=== PATIENT | female | born 1990 | race African-American/Black ===

== ENCOUNTER 2017-10-26 23:31 | Outpatient (CLI) | payer OTHER ==
--- NOTE | 2017-10-27 03:30 | Ultrasound Report ---
* REVISED: THIS REPORT WAS ORIGINALLY SIGNED ON 10/27/2017 @ 0344. DATE OF SERVICE WAS REVISED ON 11/02/2017. Procedure Date: 10/27/2017 Accession Number: [id number] / [id number] Procedure: US - OB Transvaginal CPT Code: FULL RESULT: EXAM: FIRST TRIMESTER OBSTETRIC ULTRASOUND (Less than 11 weeks) EXAM DATE: 10/26/2017 11:47 PM. CLINICAL HISTORY: In vitro fertilization on 09/28/2017. Follow-up exam. COMPARISONS: None. TECHNIQUE: Transabdominal and transvaginal ultrasound examination with static image documentation. FINDINGS: Gestational Sac: No definite gestational sac demonstrated at this time. MATERNAL STRUCTURES: Uterus: Uterus is normal in position and configuration. Uterus measures 9.4 x 4.4 x 6.0 cm. Endometrium: There is nonspecific heterogeneous thickening of the endometrial stripe complex. A definite gestational sac is not identified on this exam. Right Ovary/Adnexa: Physiologic appearance of the right ovary is noted, measuring 2.0 x 2.5 x 1.3 cm. Left Ovary/Adnexa: Physiologic appearance of the left ovary is noted, measuring 1.5 x 1.2 x 1.1 cm. Free Fluid: None. Other: None. IMPRESSION: 1. No definite intrauterine gestational sac demonstrated. No suspicious adnexal lesion demonstrated. Correlation with serum beta hCG values would be helpful. Follow-up imaging could be acquired as clinically warranted. 2. Physiologic appearance of the ovaries. RADIA The call report notification system was initiated by Dr. Mila Walton at 03:24 hrs on 10/27/17. The above findings were discussed with Dr Nam Burgos, Dr by Dr. Mila Walton at 03:29 hrs on 10/27/17. MTDD
--- NOTE | 2017-10-27 03:30 | Ultrasound Report ---
REVISED: THIS REPORT WAS ORIGINALLY SIGNED ON 10/27/2017 @ 0344. EXAM CODE REVISED ON 11/02/2017. Procedure Date: 10/27/2017 Accession Number: [id number] / [id number] Procedure: US - OB 14+ Weeks CPT Code: FULL RESULT: EXAM: FIRST TRIMESTER OBSTETRIC ULTRASOUND (Less than 11 weeks) EXAM DATE: 10/26/2017 11:47 PM. CLINICAL HISTORY: In vitro fertilization on 09/28/2017. Follow-up exam. COMPARISONS: None. TECHNIQUE: Transabdominal and transvaginal ultrasound examination with static image documentation. FINDINGS: Gestational Sac: No definite gestational sac demonstrated at this time. MATERNAL STRUCTURES: Uterus: Uterus is normal in position and configuration. Uterus measures 9.4 x 4.4 x 6.0 cm. Endometrium: There is nonspecific heterogeneous thickening of the endometrial stripe complex. A definite gestational sac is not identified on this exam. Right Ovary/Adnexa: Physiologic appearance of the right ovary is noted, measuring 2.0 x 2.5 x 1.3 cm. Left Ovary/Adnexa: Physiologic appearance of the left ovary is noted, measuring 1.5 x 1.2 x 1.1 cm. Free Fluid: None. Other: None. IMPRESSION: 1. No definite intrauterine gestational sac demonstrated. No suspicious adnexal lesion demonstrated. Correlation with serum beta hCG values would be helpful. Follow-up imaging could be acquired as clinically warranted. 2. Physiologic appearance of the ovaries. RADIA The call report notification system was initiated by Dr. Mila Walton at 03:24 hrs on 10/27/17. The above findings were discussed with Dr Nam Burgos, Dr by Dr. Mila Walton at 03:29 hrs on 10/27/17. MTDD
== END 2017-10-26 23:32 | disposition home or self-care (01) ==
LOC: DI 23:31
PROVIDERS: ATTEND Obstetrics & Gynecology
DX: Z36.9 Encounter for antenatal screening, unspecified (principal)
CPT/HCPCS: 76801; 76805; 76817

== ENCOUNTER 2017-10-27 13:05 | Outpatient (CLI) | payer OTHER | END 2017-10-27 13:06 | disposition home or self-care (01) | LOC: LAB 13:05 | PROVIDERS: ATTEND Obstetrics & Gynecology | DX: Z36.9 Encounter for antenatal screening, unspecified (principal) | CPT/HCPCS: 36415; 84702 ==

== ENCOUNTER 2018-01-01 23:20 | Emergency (ER) | payer OTHER ==
--- NOTE | 2018-01-02 00:06 | ED Physician Documentation ---
PD HPI BACK PAIN - Stated complaint Stated Complaint: BACK PAIN - Chief complaint Chief Complaint: Back Pain - History obtained from History obtained from: Patient - History of Present Illness Timing - onset: Yesterday Timing - details: Abrupt onset, Still present Location: Lower, Left Quality: Pain Worsened by: Movement, Lifting Contributing factors: Lifting Similar symptoms before: Has not had sx before Recently seen: Not recently seen - Additional information Additional information: Patient is a 27 year old female who is presenting to the emergency department for left lower back pain. 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 patient states that her biggest concern was for a miscarriage since she had a miscarriage in the past. patient wanted a beta hcg level to make sure it was still going up. Review of Systems Ten Systems: 10 systems reviewed and negative GI: denies: Abdominal Pain, Nausea, Vomiting, Diarrhea : denies: Dysuria, Frequency, Hesitancy, Discharge, Vaginal bleeding Musculoskeletal: reports: Back pain PD PAST MEDICAL HISTORY - Past Medical History Past Medical History: No - Past Surgical History Past Surgical History: No - Present Medications Home Medications: Ambulatory Orders Medication Instructions Recorded Confirmed Estradiol [Estrogel] 50 gm TD 01/01/18 Progesterone,Micronized 1 gm MC 01/01/18 [Progesterone] - Allergies Allergies/Adverse Reactions: Allergies Allergy/AdvReac Type Severity Reaction Status Date / Time No Known Drug Allergies Allergy Verified 01/01/18 23:31 - Social History Does the pt smoke?: No Smoking Status: Never smoker Does the pt drink ETOH?: No Does the pt have substance abuse?: No - Immunizations Immunizations are current?: Yes - POLST Patient has POLST: No PD ED PE NORMAL - Vitals Vital signs reviewed: Yes - General General: Alert and oriented X 3, No acute distress - HEENT HEENT: Atraumatic, PERRL - Neck Neck: Supple, no meningeal sign - Cardiac Cardiac: RRR - Respiratory Respiratory: No respiratory distress - Abdomen Abdomen: Soft - Derm Derm: Normal color, No rash - Extremities Extremities: No deformity, Normal ROM s pain - Neuro Neuro: Alert and oriented X 3 Eye Opening: Spontaneous PD ED PE EXPANDED - General General: Alert, Anxious - Back Back: Normal ROM, Soft tissue tenderness. No: Vertebral tenderness Back visual: 1 - tenderness Results - Vitals Vitals: Vital Signs - 24 hr 01/01/18 23:27 Temperature 36.0 C L Heart Rate 78 Respiratory 18 Rate Blood Pressure 124/77 O2 Saturation 100 Oxygen O2 Source Room air PD MEDICAL DECISION MAKING - ED course Complexity details: reviewed old records, reviewed results, re-evaluated patient, considered differential, d/w patient ED course: Grecia was seen and examined at bedside. patient was well appearing and in no d istress. patient was anxious and tearful about having a miscarriage. patient reported that she did not need tylenol since she could take it at home but wanted to confirm that her beta hcg was still rising. labs were drawn. patient was treated with an ice pack. patient's beta hcg was in did elevating. Patient required no further work up at this time and was stable for discharge with outpatient follow up. - Sepsis Event Vital Signs: Vital Signs - 24 hr 01/01/18 23:27 Temperature 36.0 C L Heart Rate 78 Respiratory 18 Rate Blood Pressure 124/77 O2 Saturation 100 Oxygen O2 Source Room air Departure - Departure Disposition: 01 Home, Self Care Clinical Impression: Back pain Condition: Good Instructions: ED Low Back Pain Injury Follow-Up: primary,care provider [Other] - Within 3 Days Comments: Your symptoms today are likely secondary to a low back strain. You should ice the area and take tylenol as needed for pain. you should follow up with medical records for your beta level tomorrow. You may return to the emergency depar tment at any time for new, worsening or uncontrollable symptoms. Forms: Activity restrictions
[2018-01-02 01:20] VITALS: BP 126/66
== END 2018-01-02 01:05 | disposition home or self-care (01) ==
LOC: ED 23:20
DX: M54.5 Low back pain (principal)
CPT/HCPCS: 36415; 84702; 99282; 99283

== ENCOUNTER 2018-01-05 15:05 | Emergency (ER) | payer OTHER ==
[2018-01-05 15:17] VITALS: BP 109/71
--- NOTE | 2018-01-05 16:27 | ED Physician Documentation ---
History of Present Illness - Stated complaint Stated Complaint: RETURN TO WORK - Chief complaint Chief Complaint: General - History obtained from History obtained from: Patient - History of Present Illness Timing: Other (She recently injured her back. She is completely recovered and needs a return to work note. She has no specific complaints at this point.) Review of Systems Constitutional: reports: Reviewed and negative Cardiac: reports: Reviewed and negative Respiratory: reports: Reviewed and negative PD PAST MEDICAL HISTORY - Past Surgical History Past Surgical History: No - Present Medications Home Medications: Ambulatory Orders Medication Instructions Recorded Confirmed Estradiol [Estrogel] 50 gm TD 01/01/18 Progesterone,Micronized 1 gm MC 01/01/18 [Progesterone] - Allergies Allergies/Adverse Reactions: Allergies Allergy/AdvReac Type Severity Reaction Status Date / Time No Known Drug Allergies Allergy Verified 01/05/18 15:17 - Social History Does the pt smoke?: No Smoking Status: Never smoker Does the pt drink ETOH?: No Does the pt have substance abuse?: No - Immunizations Immunizations are current?: Yes - POLST Patient has POLST: No PD ED PE NORMAL - Vitals Vital signs reviewed: Yes - General General: Alert and oriented X 3, No acute distress - Back Back: No CVA TTP, No spinal TTP - Neuro Neuro: Alert and oriented X 3, Normal speech Results - Vitals Vitals: Vital Signs - 24 hr 01/05/18 15:15 Temperature 36 C L Heart Rate 82 Respiratory 20 Rate Blood Pressure 109/71 O2 Saturation 100 Oxygen O2 Source Room air PD MEDICAL DECISION MAKING - Sepsis Event Vital Signs: Vital Signs - 24 hr 01/05/18 15:15 Temperature 36 C L Heart Rate 82 Respiratory 20 Rate Blood Pressure 109/71 O2 Saturation 100 Oxygen O2 Source Room air Departure - Departure Disposition: 01 Home, Self Care Clinical Impression: Back pain Qualifiers: Back pain location: low back pain Condition: Good Record reviewed to determine appropriate education?: Yes
== END 2018-01-05 16:30 | disposition home or self-care (01) ==
LOC: ED 15:05
DX: M54.5 Low back pain (principal)
CPT/HCPCS: 99281; 99282

== ENCOUNTER 2018-01-12 20:58 | Outpatient (CLI) | payer OTHER ==
--- NOTE | 2018-01-13 14:07 | Ultrasound Report ---
Reason: ENCTR FOR TEST, RESULT POSITIVE Procedure Date: 01/12/2018 Accession Number: [id number] / [id number] Procedure: US - OB First Trimester CPT Code: FULL RESULT: EXAM: FIRST TRIMESTER OBSTETRIC ULTRASOUND (Less than 11 weeks) EXAM DATE: 01/12/2018 09:02 PM. CLINICAL HISTORY: Encounter FOR TEST, RESULT POSITIVE. LMP: 11/22/2017. COMPARISONS: None. TECHNIQUE: Transabdominal and transvaginal ultrasound examination with static image documentation. CLINICAL DATES: EGA 6 weeks 6 days with ERIN 09/02/2018 based on IVF 12/10/2017. ASSESSMENT: Gestational Sac: Single intrauterine. Mean gestational sac diameter: 20 mm = 6.5 weeks. Embryo: CRL (crown-rump length) 9.2 mm = 7 weeks. Cardiac activity: 139 beats per minute. Yolk sac: 3 mm. Amniotic fluid: Not accurately assessed at this gestational age. Early placenta: Not visible at this gestational age. Other: No perigestational fluid collection demonstrated. MATERNAL STRUCTURES: Uterus: Anteverted/ . Unremarkable. Cervix: Closed. Right Ovary/Adnexa: The ovary measures 2.9 x 1.3 x 3.5 cm, volume 7.1 cc. Unremarkable. Left Ovary/Adnexa: The ovary measures 4.4 x 1.5 x 1.7 cm, volume 5.8 cc. Unremarkable. Free Fluid: None. Other: None. IMPRESSION: 1. Single viable intrauterine at EGA 7 weeks 0 days with ERIN 08/31/2018 based on crown-rump length, which is concordant with dating from IVF. RADIA
== END 2018-01-12 20:59 | disposition home or self-care (01) ==
LOC: DI 20:58
PROVIDERS: ATTEND Obstetrics & Gynecology
DX: Z32.01 Encounter for pregnancy test, result positive (principal); Z3A.01 Less than 8 weeks gestation of pregnancy
CPT/HCPCS: 76801

== ENCOUNTER 2018-01-27 16:38 | Outpatient (CLI) | payer OTHER ==
[2018-01-27 17:19] LABS: BILIRUBIN,URINE NEGATIVE (NEGATIVE); GLUCOSE, URINE (UA) NEGATIVE (NEGATIVE); KETONES,URINE (UA) NEGATIVE (NEGATIVE); LEUKOCYTE ESTERASE, URINE NEGATIVE (NEGATIVE); NITRITE,URINE NEGATIVE (NEGATIVE); OCCULT BLOOD,URINE TRACE-INTA (NEGATIVE); PROTEIN,URINE NEGATIVE (NEGATIVE); UROBILINOGEN,URINE 0.2 (NORMAL) E.U./dL (NORMAL)
[2018-01-27 17:27] LABS: CLARITY,URINE CLEAR (CLEAR)
[2018-01-27 17:28] LABS: BACTERIA,URINE None Seen /HPF (None Seen); RBC,URINE None Seen /HPF (0-5); SQUAMOUS EPITHELIAL CELL,UR RARE Squamous (<= Few)
[2018-01-27 17:36] LABS: BASOPHILS % (AUTO) 0.2 %; EOSINOPHILS # (AUTO) 0.4 10^3/uL (0.0-0.7); EOSINOPHILS % (AUTO) 4.5 %; HGB - HEMOGLOBIN 12.2 g/dL (12.0-16.0); LYMPHOCYTES # (AUTO) 1.3 10^3/uL (1.5-3.5); LYMPHOCYTES % (AUTO) 16.4 %; MEAN CORPUSCULAR HEMOGLOBIN 30.6 pg (27.0-31.0); MEAN CORPUSCULAR HGB CONC 33.9 g/dL (32.0-36.0); MEAN CORPUSCULAR VOLUME 90.1 fL (81.0-99.0); MEAN PLATELET VOLUME 9.4 fL (7.9-10.8); MONOCYTES # (AUTO) 0.6 10^3/uL (0.0-1.0); MONOCYTES % (AUTO) 7.4 %; NEUTROPHILS # (AUTO) 5.6 10^3/uL (1.5-6.6); NEUTROPHILS % (AUTO) 71.5 %; PLT - PLATELET COUNT 237 10^3/uL (130-450); RED BLOOD COUNT 3.98 10^6/uL (4.20-5.40); RED CELL DISTRIBUTION WIDTH 13.5 % (12.0-15.0); WHITE BLOOD COUNT 7.9 x10^3/uL (4.8-10.8)
[2018-01-28 11:26] LABS: HEPATITIS B SURFACE ANTIGEN NON-REACTIVE (NON-REACTIVE)
[2018-01-28 11:27] LABS: HEPATITIS C ANTIBODY NON-REACTIVE (NON-REACTIVE)
[2018-01-28 12:43] LABS: HIV AG/AB 4TH GEN NON-REACTIVE (NON-REACTIVE)
== END 2018-01-27 16:39 | disposition home or self-care (01) ==
LOC: LAB 16:38
PROVIDERS: ATTEND Obstetrics & Gynecology
DX: Z36.9 Encounter for antenatal screening, unspecified (principal)
CPT/HCPCS: 36415; 81001; 81599; 85025; 86592; 86762; 86803; 86850; 86900; 86901; 87340; 87389

== ENCOUNTER 2018-01-28 08:00 | Outpatient (CLI) | payer OTHER ==
[2018-01-28 14:39] LABS: MUDS CUTOFF CONCENTRATIONS CUTOFF CONC BELOW:
[2018-01-28 15:22] LABS: AMPHETAMINE SCREEN,URINE NEGATIVE (NEGATIVE); BENZODIAZEPINES SCREEN, URINE NEGATIVE (NEGATIVE); COCAINE SCREEN URINE NEGATIVE (NEGATIVE); METHADONE SCREEN, URINE NEGATIVE (NEGATIVE); METHAMPHETAMINES SCREEN, URINE NEGATIVE (NEGATIVE); OPIATE SCREEN, URINE NEGATIVE (NEGATIVE); OXYCODONE SCREEN, URINE NEGATIVE (NEGATIVE); PROPOXYPHENE SCREEN, URINE NEGATIVE (NEGATIVE); TRICYCLIC ANTIDEPRESSANT,URINE NEGATIVE (NEGATIVE)
== END 2018-01-28 08:01 | disposition home or self-care (01) ==
LOC: LAB.R 08:00
PROVIDERS: ATTEND Obstetrics & Gynecology
DX: Z36.9 Encounter for antenatal screening, unspecified (principal); Z11.3 Encounter for screening for infections with a predominantly sexual mode of transmission
CPT/HCPCS: 80306; 87491; 87591

== ENCOUNTER 2018-04-08 09:24 | Outpatient (CLI) | payer OTHER ==
--- NOTE | 2018-04-11 14:00 | Ultrasound Report ---
Reason: ENCOUNTER FOR SCREENING,UNSPECIFIED,PREG Procedure Date: 04/08/2018 Accession Number: [id number] / [id number] Procedure: US - OB Detailed Eval CPT Code: FULL RESULT: EXAM: COMPLETE OBSTETRICAL ULTRASOUND EXAM DATE: 04/08/2018 11:45 AM. CLINICAL HISTORY: anatomic survey. COMPARISON: 01/12/2018. TECHNIQUE: Real-time sonographic evaluation of the fetus performed by the etl manager. Multiple billing representative static images were saved for review. DATING: EGA 19 weeks 2 days with ERIN 08/31/2018 based on prior ultrasound. EGA 19 weeks 4 days with ERIN 08/29/2018 based on the current ultrasound. GENERAL EVALUATION Mcintosh . Cardiac activity: 143 bpm. movement: Present Presentation: Variable Placenta: Anterior position. No evidence for previa. Umbilical cord: 3 vessel cord. Central placental cord origin. Amniotic fluid: Subjectively normal. MVP 3.3 cm. BIOMETRY Bi-Parietal Diameter (BPD): 4.8 cm, 20 weeks 2 days Head Circumference (HC): 17.2 cm, 19 weeks 5 days Abdominal Circumference (AC): 14.1 cm, 19 weeks 3 days Femur Length (FL): 3 cm, 19 weeks 2 days Estimated Weight: 296 g. ANATOMY The intracranial structures, spine, 4 chamber heart, stomach, abdominal wall and cord insertion, diaphragm, bladder, and extremities were imaged and demonstrate no abnormality. The profile, nasal bones, outflow tracts, and kidneys are not well seen. Suggest follow-up imaging in 2-3 weeks of these structures. MATERNAL STRUCTURES Uterus: Unremarkable. Cervix: Long and closed. Transabdominal length 4.1 cm. Right ovary/adnexa: Unremarkable. Left ovary/adnexa: Unremarkable. Free fluid: None. IMPRESSION: 1. Mcintosh intrauterine with gestational age 19 weeks 4 days based on current ultrasound, concordant with the expected age by first ultrasound.. 2. The facial profile, nasal bones, outflow tracts, and kidneys are suboptimally seen today. Suggest follow-up imaging in 2-3 weeks of these structures. 3. Otherwise unremarkable anatomic survey. RADIA
== END 2018-04-08 09:25 | disposition home or self-care (01) ==
LOC: DI 09:24
PROVIDERS: ATTEND Obstetrics & Gynecology
DX: Z36.9 Encounter for antenatal screening, unspecified (principal); Z33.1 Pregnant state, incidental
CPT/HCPCS: 76811

== ENCOUNTER 2018-06-02 09:54 | Outpatient (CLI) | payer OTHER ==
--- NOTE | 2018-06-02 13:46 | Ultrasound Report ---
Reason: Procedure Date: 06/02/2018 Accession Number: [id number] / [id number] Procedure: US - OB F/U or Repeat CPT Code: FULL RESULT: EXAM: FOLLOW-UP OBSTETRICAL ULTRASOUND EXAM DATE: 06/02/2018 11:48 AM. CLINICAL HISTORY: Completion of anatomy survey. COMPARISON: OB DETAILED EVAL 04/08/2018 9:43 AM. TECHNIQUE: Real-time sonographic evaluation of the fetus performed by the biomedical electronics technician. Additional transvaginal imaging to more accurately evaluate cervical length/placental position/etc. Multiple outside sales representative insurance static images were saved for review. DATING: Established EGA 26 weeks 6 days with ERIN 09/02/2018 based on chute operator. EGA 27 weeks 1 day with ERIN 08/31/2018 based on first ultrasound. EGA 27 weeks 5 days with ERIN 08/27/2018 based on the current ultrasound. GENERAL EVALUATION Mcintosh . Cardiac activity: 138 bpm. movement: Visualized. Presentation: Cephalic. Placenta: Anterior position. Amniotic fluid: Normal. BEULAH 15.9 cm. MVP 5.8 cm. BIOMETRY Bi-Parietal Diameter (BPD): 7.2 cm, 28 weeks 5 days Head Circumference (HC): 25.6 cm, 27 weeks 5 days Abdominal Circumference (AC): 22.7 cm, 27 weeks 0 days Femur Length (FL): 5.2 cm, 27 weeks 3 days Estimated Weight: 1075 g, 60th percentile for 26 weeks 6 days. ANATOMY The facial profile, nasal bones, cardiac outflow tracts and kidneys are adequately visualized on today's examination and normal. MATERNAL STRUCTURES The cervix was evaluated transvaginally and demonstrates mild internal funneling with a closed length of 2.6 cm maintained. IMPRESSION: 1. Mcintosh live intrauterine with gestational age 26 weeks 6 days based on chute operator. 2. Estimated weight is within expected limits for assigned dating. 3. Normal completion of the anatomy survey. 4. Closed cervix with transvaginal length of 2.6 cm. RADIA The call report notification system was initiated by Dr. Austin Whittaker at 01:33 PM on 06/02/2018. ADDENDUM: 06/02/18 14:34 The above call report findings were discussed with Nam Burgos by Dr. Austin Whittaker at 02:34 PM on 06/02/2018.
== END 2018-06-02 09:55 | disposition home or self-care (01) ==
LOC: DI 09:54
PROVIDERS: ATTEND Obstetrics & Gynecology
DX: Z36.89 Encounter for other specified antenatal screening (principal)
CPT/HCPCS: 76816

== ENCOUNTER 2018-06-06 20:56 | Outpatient (CLI) | payer OTHER ==
[2018-06-06 21:43] LABS: CREATININE,URINE 145.2 mg/dL; PROTEIN/CREATININE RATIO,URINE 0.1 (<=0.2)
[2018-06-06 22:28] LABS: BASOPHILS % (AUTO) 0.2 %; EOSINOPHILS % (AUTO) 0.4 %; HGB - HEMOGLOBIN 9.6 g/dL (12.0-16.0); LYMPHOCYTES # (AUTO) 1.8 10^3/uL (1.5-3.5); LYMPHOCYTES % (AUTO) 20.2 %; MEAN CORPUSCULAR HEMOGLOBIN 29.8 pg (27.0-31.0); MEAN CORPUSCULAR HGB CONC 34.6 g/dL (32.0-36.0); MEAN CORPUSCULAR VOLUME 86.2 fL (81.0-99.0); MONOCYTES # (AUTO) 0.8 10^3/uL (0.0-1.0); MONOCYTES % (AUTO) 8.6 %; NEUTROPHILS # (AUTO) 6.4 10^3/uL (1.5-6.6); NEUTROPHILS % (AUTO) 70.6 %; PLT - PLATELET COUNT 198 10^3/uL (130-450); RED BLOOD COUNT 3.22 10^6/uL (4.20-5.40); RED CELL DISTRIBUTION WIDTH 13.4 % (12.0-15.0)
[2018-06-06 22:40] LABS: ALBUMIN/GLOBULIN RATIO 0.8 (1.0-2.2); BILIRUBIN,TOTAL 0.3 mg/dL (0.2-1.0); CALCIUM 8.5 mg/dL (8.5-10.3); CREATININE 0.6 mg/dL (0.4-1.0); TOTAL PROTEIN 6.9 g/dL (6.7-8.2)
== END 2018-06-06 20:57 | disposition home or self-care (01) ==
LOC: LAB 20:56
PROVIDERS: ATTEND Obstetrics & Gynecology
DX: O09.92 Supervision of high risk pregnancy, unspecified, second trimester (principal)
CPT/HCPCS: 80053; 82570; 82950; 84156; 85025; 86787; 86850

== ENCOUNTER 2018-06-06 21:51 | Outpatient (CLI) | payer OTHER ==
--- NOTE | 2018-06-06 22:57 | Ultrasound Report ---
Reason: , FOR CERVICAL LENGTH ONLY. Procedure Date: 06/06/2018 Accession Number: [id number] / [id number] Procedure: US - OB Transvaginal CPT Code: FULL RESULT: EXAM: LIMITED OBSTETRICAL ULTRASOUND. EXAM DATE: 06/06/2018 09:51 PM. CLINICAL HISTORY: , for cervical length only. COMPARISON: OB F/U OR REPEAT 06/02/2018 9:57 AM OB DETAILED EVAL 04/08/2018 9:43 AM. TECHNIQUE: Real-time sonographic evaluation of the fetus performed by the green marketer. Multiple provider relations representative static images were saved for review. Additional transvaginal imaging to more accurately evaluate cervical length/placental position/etc. FINDINGS: Established due date: 08/27/2018. Estimated gestational age: 28 weeks 2 days. Presentation: Cephalic. Placental position: Anterior. No evidence of abruption or previa. cardiac activity: 138 bpm. Cervix measures 2.6 cm in maximal length, best seen on the transvaginal images. Subjectively normal amniotic fluid, within the visualized portions. IMPRESSION: 1. Single live intrauterine gestation is noted. 2. Cervix measures 2.6 cm, closed. RADIA
== END 2018-06-06 23:59 ==
LOC: DI 21:51
PROVIDERS: ATTEND Obstetrics & Gynecology
DX: Z36.86 Encounter for antenatal screening for cervical length (principal); O09.92 Supervision of high risk pregnancy, unspecified, second trimester
CPT/HCPCS: 76817; 80053; 82570; 82950; 84156; 85025; 85027; 86787; 86850

== ENCOUNTER 2018-06-13 14:17 | Outpatient (CLI) | payer OTHER ==
[2018-06-13 15:18] LABS: % IRON SATURATION 31 % (20-50); IRON 178 ug/dL (28-170); TOTAL IRON BINDING CAPACITY 567 ug/dL (250-450); TRANSFERRIN 405 mg/dL (192-382)
== END 2018-06-13 14:18 | disposition home or self-care (01) ==
LOC: LAB 14:17
PROVIDERS: ATTEND Obstetrics & Gynecology
DX: D64.9 Anemia, unspecified (principal)
CPT/HCPCS: 36415; 82607; 82746; 83540; 84466

== ENCOUNTER 2018-06-16 20:56 | Outpatient (CLI) | payer OTHER ==
--- NOTE | 2018-06-16 23:08 | Ultrasound Report ---
Reason: OTHER ABNORMALITIES OF CERVIX, ANTEPARTUM, 3RD TRI Procedure Date: 06/16/2018 Accession Number: [id number] / [id number] Procedure: US - OB Transvaginal CPT Code: FULL RESULT: EXAM: LIMITED OBSTETRICAL ULTRASOUND EXAM DATE: 06/16/2018 10:44 PM. CLINICAL HISTORY: Abnormal appearance of the cervix on prior ultrasound, follow-up. COMPARISON: OB TRANSVAGINAL 06/06/2018 9:50 PM. TECHNIQUE: Real-time sonographic evaluation of the fetus performed by the asset card clerk. Multiple employee representative static images were saved for review. Additional transvaginal imaging to more accurately evaluate cervical length/placental position/etc. FINDINGS: Established due date: 09/02/2018. Estimated gestational age: 28 weeks 6 days. Single live intrauterine gestation in cephalic position. Cardiac activity at 150 bpm. Cervix is long and closed measuring 3.2 cm. No definite evidence of previa in the visualized portions. IMPRESSION: 1. Single live intrauterine gestation. 2. Cervix is long and closed measuring 3.2 cm. RADIA The call report notification system was initiated by Dr. Mila Walton at 11:07 PM on 06/16/2018.
== END 2018-06-16 20:57 | disposition home or self-care (01) ==
LOC: DI 20:56
PROVIDERS: ATTEND Obstetrics & Gynecology
DX: O34.43 Maternal care for other abnormalities of cervix, third trimester (principal); Z3A.28 28 weeks gestation of pregnancy
CPT/HCPCS: 76817

== ENCOUNTER 2018-06-20 16:16 | Outpatient (CLI) | payer OTHER ==
[2018-06-20] MEDS ORDERED: BETAMETHASONE 30 MG/5 ML VIAL IM ONE (16:22)
[2018-06-20] MEDS ORDERED: BETAMETHASONE 30 MG/5 ML VIAL ONE (16:32)
[2018-06-20 16:43] VITALS: BP 113/76
== END 2018-06-20 16:44 | disposition home or self-care (01) ==
LOC: WFO 16:16 → FBP 16:19 → WFO 16:44
PROVIDERS: ATTEND Obstetrics & Gynecology
DX: O47.03 False labor before 37 completed weeks of gestation, third trimester (principal); Z3A.29 29 weeks gestation of pregnancy
CPT/HCPCS: 96372

== ENCOUNTER 2018-06-21 15:24 | Outpatient (CLI) | payer OTHER, BC ==
[2018-06-21] MEDS ORDERED: BETAMETHASONE 30 MG/5 ML VIAL IM ONE (16:00)
== END 2018-06-21 15:50 | disposition home or self-care (01) ==
LOC: WFO 15:24 → FBP 15:29 → WFO 15:50
PROVIDERS: ATTEND Obstetrics & Gynecology
DX: O47.03 False labor before 37 completed weeks of gestation, third trimester (principal); Z3A.29 29 weeks gestation of pregnancy
CPT/HCPCS: 96372

== ENCOUNTER 2018-06-30 11:35 | Outpatient (CLI) | payer OTHER, BC ==
[2018-06-30 12:01] LABS: HGB - HEMOGLOBIN 10.5 g/dL (12.0-16.0); MEAN CORPUSCULAR HEMOGLOBIN 28.7 pg (27.0-31.0); MEAN CORPUSCULAR HGB CONC 33.3 g/dL (32.0-36.0); MEAN CORPUSCULAR VOLUME 86.1 fL (81.0-99.0); MEAN PLATELET VOLUME 10.4 fL (7.9-10.8); RED BLOOD COUNT 3.67 10^6/uL (4.20-5.40); RED CELL DISTRIBUTION WIDTH 15.5 % (12.0-15.0); WHITE BLOOD COUNT 11.6 x10^3/uL (4.8-10.8)
== END 2018-06-30 11:36 | disposition home or self-care (01) ==
LOC: LAB 11:35
PROVIDERS: ATTEND Obstetrics & Gynecology
DX: D64.9 Anemia, unspecified (principal)
CPT/HCPCS: 36415; 81599; 83021; 85027

== ENCOUNTER 2018-07-08 16:17 | Outpatient (CLI) | payer BC, OTHER ==
[2018-07-08 16:55] LABS: HGB - HEMOGLOBIN 10.6 g/dL (12.0-16.0); MEAN CORPUSCULAR HGB CONC 33.5 g/dL (32.0-36.0); MEAN CORPUSCULAR VOLUME 86.8 fL (81.0-99.0); MEAN PLATELET VOLUME 10.3 fL (7.9-10.8); RED BLOOD COUNT 3.67 10^6/uL (4.20-5.40); RED CELL DISTRIBUTION WIDTH 15.8 % (12.0-15.0); WHITE BLOOD COUNT 9.3 x10^3/uL (4.8-10.8)
== END 2018-07-08 16:18 | disposition home or self-care (01) ==
LOC: LAB 16:17
PROVIDERS: ATTEND Obstetrics & Gynecology
DX: Z36.8A Encounter for antenatal screening for other genetic defects (principal); D64.9 Anemia, unspecified
CPT/HCPCS: 36415; 81220; 81243; 81329; 81599; 85027

== ENCOUNTER 2018-08-04 11:16 | Outpatient (CLI) | payer BC, OTHER | END 2018-08-04 23:59 | disposition home or self-care (01) | LOC: LAB.R 11:16 | PROVIDERS: ATTEND Obstetrics & Gynecology | DX: O09.93 Supervision of high risk pregnancy, unspecified, third trimester (principal) | CPT/HCPCS: 87491; 87591; 87797 ==

== ENCOUNTER 2018-08-11 11:16 | Outpatient (CLI) | payer BC, OTHER ==
--- NOTE | 2018-08-12 08:28 | Ultrasound Report ---
Reason: SUPERVISION HIGH RISK 3RD TRIMESTER Procedure Date: 08/11/2018 Accession Number: [id number] / [id number] Procedure: US - OB F/U or Repeat CPT Code: FULL RESULT: EXAM: FOLLOW-UP OBSTETRICAL ULTRASOUND EXAM DATE: 08/11/2018 12:07 PM. CLINICAL HISTORY: Supervision high risk 3rd trimester. COMPARISON: OB F/U OR REPEAT 06/02/2018 9:57 AM. OB DETAILED EVAL 04/08/2018 9:43 AM. OB TRANSVAGINAL 06/16/2018 10:20 PM. OB TRANSVAGINAL 06/06/2018 9:50 PM. TECHNIQUE: Real-time sonographic evaluation of the fetus performed by the airline captain. Multiple marketing development representative static images were saved for review. DATING: Established EGA 37 weeks 1 day with ERIN 08/31/2018 based on physician stated/ first ultrasound. EGA 37 weeks 5 days with ERIN 08/27/2018 based on ultrasound biometry 06/02/2018. EGA 35 weeks 5 days with ERIN 09/10/2018 based on the current ultrasound. GENERAL EVALUATION Mcintosh . Cardiac activity: 130 bpm. movement: Visualized. Presentation: Cephalic. Placenta: Anterior position. Amniotic fluid: Normal. BEULAH 10.8 cm. MVP 4.4 cm. BIOMETRY Bi-Parietal Diameter (BPD): 8.9 cm, 35 weeks 5 days Head Circumference (HC): 31.3 cm, 35 weeks 0 days Abdominal Circumference (AC): 31.6 cm, 35 weeks 4 days Femur Length (FL): 7.1 cm, 36 weeks 2 days Estimated Weight: 2746 g, 22nd percentile for 37 weeks 1 day. ANATOMY Assessed previously. MATERNAL STRUCTURES Not assessed today. IMPRESSION: 1. Mcintosh live intrauterine with gestational age 37 weeks 1 day based on physician stated. 2. Estimated weight is within expected limits for assigned dating at 22nd percentile. Estimated gestational age on current ultrasound is 10 days delayed relative to established dates. 3. Two weeks delayed interval growth compared to biometry by ultrasound 06/02/2018. RADIA
== END 2018-08-11 11:17 | disposition home or self-care (01) ==
LOC: DI 11:16
PROVIDERS: ATTEND Obstetrics & Gynecology
DX: O09.93 Supervision of high risk pregnancy, unspecified, third trimester (principal); Z3A.37 37 weeks gestation of pregnancy
CPT/HCPCS: 76816

== ENCOUNTER 2018-09-06 05:37 | Inpatient (IN) | payer BC, OTHER ==
[2018-09-06] MEDS ORDERED: LACTATED RINGERS 1,000 ML IV SCH (08:00)
[2018-09-06 08:13] LABS: BASOPHILS % (AUTO) 0.3 %; EOSINOPHILS % (AUTO) 0.2 %; HGB - HEMOGLOBIN 10.7 g/dL (12.0-16.0); LYMPHOCYTES # (AUTO) 1.9 10^3/uL (1.5-3.5); MEAN CORPUSCULAR HEMOGLOBIN 27.9 pg (27.0-31.0); MEAN CORPUSCULAR HGB CONC 33.6 g/dL (32.0-36.0); MEAN CORPUSCULAR VOLUME 83.2 fL (81.0-99.0); MEAN PLATELET VOLUME 10.8 fL (7.9-10.8); MONOCYTES # (AUTO) 0.7 10^3/uL (0.0-1.0); NEUTROPHILS # (AUTO) 6.1 10^3/uL (1.5-6.6); NEUTROPHILS % (AUTO) 69.5 %; PLT - PLATELET COUNT 200 10^3/uL (130-450); RED BLOOD COUNT 3.82 10^6/uL (4.20-5.40); RED CELL DISTRIBUTION WIDTH 17.5 % (12.0-15.0); WHITE BLOOD COUNT 8.7 x10^3/uL (4.8-10.8)
[2018-09-06] MEDS: SODIUM CHLORIDE FLUSH 0.9% 10 ML SYRINGE IVP SCH ×2 (09:11→19:11)
[2018-09-06] MEDS ORDERED: OXYTOCIN/SODIUM CHLORIDE 500 ML IV PRN (09:57)
[2018-09-06] MEDS ORDERED: fentaNYL 100 MCG/2 ML VIAL IVP PRN (09:57)
[2018-09-06] MEDS ORDERED: SODIUM CHLORIDE FLUSH 0.9% 10 ML SYRINGE IVP PRN (09:57)
[2018-09-06] MEDS ORDERED: METOCLOPRAMIDE 10 MG/2 ML VIAL IVP PRN ×2 (09:57→23:21)
[2018-09-06] MEDS: miSOPROStol 100 MCG TABLET PO SCH ×3 (10:17→19:48)
[2018-09-06] MEDS ORDERED: SODIUM CHLORIDE FLUSH 0.9% 10 ML SYRINGE IVP SCH (17:00)
[2018-09-06] MEDS: ONDANSETRON 4 MG/2 ML VIAL IVP PRN (19:10)
[2018-09-06] MEDS ORDERED: fent/BUPIV 2 MCG/0.125% 250 ML EP ONE (22:21)
[2018-09-06] MEDS ORDERED: fentaNYL 100 MCG/2 ML VIAL ONE (22:34)
[2018-09-06] MEDS ORDERED: ROPIVACAINE 0.2% PF 20 ML AMPULE ONE (22:34)
--- NOTE | 2018-09-06 22:42 | HISTORY & PHYSICAL EXAMINATION ---
Admit History - Visit Reason Visit Reason: Other (28yo with ERIN of 09/02/18 by IVF dating here for induction of labor) - : 2 Parity: 1 Care: positive: [facility] Risk/History: positive: None (pending post dates) Complications This : positive: None Smoking Status: Never smoker - Mother's Labs Mother's Blood Type: positive: AB Mother's RH: positive: Positive GBS: positive: Group B Step Negative Rubella Status: positive: Immune - Other Maternal History Other Maternal History: Normocytic anemia with sickle cell trait IVF Meds/Allgy - Home Medications Home Medications: Ambulatory Orders Medication Instructions Recorded Confirmed Estradiol [Estrogel] 50 gm TD 01/01/18 Progesterone,Micronized 1 gm MC 01/01/18 [Progesterone] - Allergies Allergies/Adverse Reactions: Allergies Allergy/AdvReac Type Severity Reaction Status Date / Time No Known Drug Allergies Allergy Verified 01/05/18 15:17 Review of Systems - All Other Systems All Other Systems: reports: Reviewed and negative Physical - Abdominal Exam Contraction Intensity: positive: Irritability Uterine Resting Tone: positive: Soft - Monitoring Strip Review: positive: Category I - Presentation Presentation: positive: Vertex (confirmed by bedside us) - Vaginal Exam Membranes: positive: Membranes intact Dilation (in cm): 2-3 Effacement (%): 60 Station: positive: -2 Cervical Position: positive: Midposition - Speculum Exam Speculum Exam Performed: negative: No Plan for Labor - Plan For Labor I expect patient to be DC'd or transferred within 96 hours.: Yes Plan for Labor: 28 yo at 40w4d by IVF dating here for pending postdates IOL SVE 2-3/60/-2 Not favorable Reviewed process of IOL and consents were obtained Will start cervical ripening with misoprostol po Discussed possibility of Ramsey balloon and proceeding to pitocin FWB: Vertex by US, appropriate growth, GBS neg, Cat I tracing -Cont EFM PAIN MGT: Reviewed options available. -Desires epidural at 5-6 cm Anticipate Inpatient stay (LATE ENTRY. Admitted at 8:30 am)
--- NOTE | 2018-09-06 22:55 | PROVIDER PROGRESS NOTE ---
Labor Progress Note - Uterine Monitoring Contraction Frequency (min/apart): Q2-3 min Contraction Intensity: negative: Moderate to strong Uterine Resting Tone: positive: Soft - Monitoring Monitor Mode: negative: External ultrasound Heart Rate Baseline: 140 Heart Rate Variability: positive: Moderate (6-25 bmp) Accelerations: positive: Present, 15x15 (Cat I tracing) Decelerations: positive: None Strip Review: positive: Category I - Vaginal Exam Dilation (in cm): 6 Effacement (%): 80 Station: -1 Cervical Position: Midposition - Labor Progress Note Labor Progress Note/Additional Text: Patient had received 2 doses of misoprostol and had entered into appropriate labor pattern Four hours after second dose SVE was 5/60/-2 We opted for expectant management at that time. tracing was Cat I At about 9:24 pm, pt requested AROM tracing was Cat I and contractions were Q2-3 min. Renetta was uncomfortable and had to breathe through contractions Nitrous oxide for pain after fentanyl SVE 6/80/-1 AROM for clear fluid GBS neg Considering epidural Cont with expt management Anticipate
[2018-09-06] MEDS ORDERED: SODIUM CHLORIDE FLUSH 0.9% 10 ML SYRINGE ONE (22:59)
[2018-09-06] MEDS ORDERED: NALBUPHINE 10 MG/ML AMP IVP PRN (23:21)
[2018-09-06] MEDS ORDERED: fent/BUPIV 2 MCG/0.125% 250 ML EP PRN (23:21)
[2018-09-06] MEDS ORDERED: diphenhydrAMINE INJ 50 MG/ML VIAL IVP PRN (23:21)
[2018-09-06] MEDS ORDERED: ePHEDrine 50 MG/ML VIAL IVP PRN (23:21)
[2018-09-06] MEDS ORDERED: LACTATED RINGERS 500 ML IV ONE (23:21)
[2018-09-06] MEDS ORDERED: NALOXONE 0.4 MG/ML VIAL IVP PRN (23:21)
[2018-09-06] MEDS ORDERED: ONDANSETRON 4 MG/2 ML VIAL IVP PRN (23:21)
--- NOTE | 2018-09-06 23:21 | ANESTHESIA ---
Pre-Anesthesia VS, & Labs - Diagnosis term labor, IUP - Procedure Vaginal Delivery Height 5 ft 4 in Weight (kg) 74.843 kg Body Mass Index 22.3 - NPO Last Fluid Intake: t/o day and noc - Is Patient ?: Yes - Lab Results Current Lab Results: Laboratory Tests 09/06/18 07:24: WBC 8.7, RBC 3.82 L, Hgb 10.7 L, Hct 31.8 L, MCV 83.2, MCH 27.9, MCHC 33.6, RDW 17.5 H, Plt Count 200, MPV 10.8, Neut # (Auto) 6.1, Lymph # (Auto) 1.9, [place] # (Auto) 0.7, Eos # (Auto) 0.0, Baso # (Auto) 0.0, Absolute Nucleated RBC 0.00, Nucleated RBC % 0.1 Lab results reviewed: Yes Fish Bones: 09/06/18 07:24 Home Medications and Allergies Active Medications Fentanyl (Fentanyl) 50 mcg IVP Q1H PRN PRN Reason: PAIN Last Admin: 09/06/18 18:49 Dose: 50 mcg Lactated Ringer's (Lr) 1,000 mls @ 150 mls/hr IV .Q6H40M [facility] Oxytocin/Sodium Chloride (Pitocin/Sodium Chloride) 500 mls @ 999 mls/hr IV PRN PRN; Protocol PRN Reason: POST- HEMORR PREVENTION Metoclopramide HCl (Reglan Inj) 10 mg IVP Q6H PRN PRN Reason: Nausea / Vomiting Misoprostol (Cytotec) 50 mcg PO Q4H [facility] Last Admin: 09/06/18 19:48 Dose: Not Given Ondansetron HCl (Zofran Inj) 4 mg IVP Q4H PRN PRN Reason: Nausea / Vomiting Last Admin: 09/06/18 19:10 Dose: 4 mg Sodium Chloride (Normal Saline Flush 0.9%) 10 ml IVP 0100,0900,1700 [facility] Last Admin: 09/06/18 19:11 Dose: 10 ml Sodium Chloride (Normal Saline Flush 0.9%) 10 ml IVP PRN PRN PRN Reason: NEEDED PER PROVIDER ORDERS Estradiol [Estrogel] 50 gm TD 01/01/18 Progesterone,Micronized [Progesterone] 1 gm MC 01/01/18 Allergies/Adverse Reactions: Allergies Allergy/AdvReac Type Severity Reaction Status Date / Time No Known Drug Allergies Allergy Verified 01/05/18 15:17 Anes History & Medical History - Anesthetic History Anesthesia Complications: reports: No previous complications Family history of Anesthesia Complications: Denies Family history of Malignant Hyperthermia: Denies - Medical History Smoking Status: Never smoker - Surgical History Eyes Ears Nose Throat (EENT): Tonsil/Adenoidectomy - Obstetrical History : 2 Parity: 1 Events: positive: None (pending post dates) Complications: positive: None Exam General: Alert, Oriented x3, Cooperative Dental: WNL Mouth Openin Fingerbreadth Neck Mobility: Normal Mallampati classification: I Thyromental Distance: 4-6 cm Respiratory: No respiratory distress Cardiovascular: Regular rate Neurological: Normal speech Mental/Cognitive Status: Alert/Oriented X3, Normal for patient Cognitive Status: Within normal limits Plan Anesthesia Type: Epidural Consent for Procedure(s) Verified and Reviewed: Yes Code Status: Attempt Resuscitation ASA classification: 2-Mild systemic disease Is this case an emergency?: No
[2018-09-06] MEDS ORDERED: SODIUM CHLORIDE 0.9% 10 ML VIAL IV ONE (23:33)
[2018-09-06] MEDS ORDERED: ePHEDrine 50 MG/ML VIAL IVP ONE (23:33)
[2018-09-07] MEDS: LACTATED RINGERS 1,000 ML IV SCH ×3 (00:24→20:53)
--- NOTE | 2018-09-07 01:59 | PROVIDER PROGRESS NOTE ---
Labor Progress Note - Uterine Monitoring Contraction Intensity: positive: Moderate Uterine Resting Tone: positive: Soft - Monitoring Monitor Mode: positive: External ultrasound Heart Rate Baseline: 135 Heart Rate Variability: positive: Moderate (6-25 bmp) Accelerations: positive: Absent Decelerations: positive: Early - Vaginal Exam Dilation (in cm): 9.5 Effacement (%): 100 Station: 0 Cervical Position: Midposition - Labor Progress Note Labor Progress Note/Additional Text: At about 1:00, tracing showed a deceleration. SVE was AL Pushing initiated with retraction of CL Decelerations noted wiht pushes Baby in OP position Head elevated and manual rotation attempted Head not well engaged Further exam shows return of AL despite additional retraction. Posteriorly, additional cervical tissue remains Opting to cease pushing and cont to labor/labor down EFM 135 mod variability, no accels and intermittent decels c/w early decel TOCO: Q 3ming Consider IUPC to assess intrauterine pressure. Cont to monitor
[2018-09-07] MEDS ORDERED: TERBUTALINE 1 MG/ML VIAL SUBQ ONE ×2 (03:00→05:33)
[2018-09-07] MEDS ORDERED: ceFAZolin 2 GM in SODIUM CHLORIDE 0.9% MINIBAG 100 ML IV SCH (03:29)
--- NOTE | 2018-09-07 03:34 | PROVIDER PROGRESS NOTE ---
Labor Progress Note - Uterine Monitoring Contraction Intensity: positive: Moderate Uterine Resting Tone: positive: Soft - Monitoring Monitor Mode: positive: External ultrasound Heart Rate Variability: positive: Moderate (6-25 bmp) Accelerations: positive: Absent Decelerations: positive: Recurrent (>50% x20 min) (EFM 120 mod ihsan wiht deep recurrent decels with pushing) - Vaginal Exam Dilation (in cm): complete Effacement (%): 100 Station: 0 - Labor Progress Note Labor Progress Note/Additional Text: Labored down one hour Recurrent decelsfelt with pelvic pressure reported by patient Minimal change in descent Deep recurrent decels with pushing suggesting of nuchal cords Given poor descent nd increasng intensity of decels, recommend delivery via c- section Terbutlaine given to slow/reduce intensity of contractions cefazolin 2 g IV ordered OCTOR Proceed with delivery
[2018-09-07] MEDS ORDERED: CITRIC ACID/SODIUM CITRATE 15 ML UDC PO ONE (03:39)
[2018-09-07] MEDS ORDERED: LACTATED RINGERS 1,000 ML IV ONE ×3 (05:19→09:35)
[2018-09-07] MEDS ORDERED: LORazepam 2 MG/ML VIAL ONE (06:03)
[2018-09-07] MEDS ORDERED: LABETALOL 5 MG/1 ML 20 ML MDV ONE (06:16)
[2018-09-07] MEDS ORDERED: MAGNESIUM SULFATE 2 GRAM 6 GM/150 ML BAG IV ONE (06:37)
[2018-09-07] MEDS: MAGNESIUM SULFATE 2 GRAM 2 GM/50 ML BAG IV SCH ×2 (06:41→07:01)
[2018-09-07 07:04] LABS: BASOPHILS % (AUTO) 0.1 %; HGB - HEMOGLOBIN 8.7 g/dL (12.0-16.0); LYMPHOCYTES # (AUTO) 0.6 10^3/uL (1.5-3.5); LYMPHOCYTES % (AUTO) 2.9 %; MEAN CORPUSCULAR HEMOGLOBIN 27.8 pg (27.0-31.0); MEAN CORPUSCULAR HGB CONC 33.2 g/dL (32.0-36.0); MEAN CORPUSCULAR VOLUME 83.6 fL (81.0-99.0); MEAN PLATELET VOLUME 10.6 fL (7.9-10.8); MONOCYTES # (AUTO) 1.6 10^3/uL (0.0-1.0); MONOCYTES % (AUTO) 7.7 %; NEUTROPHILS # (AUTO) 18.1 10^3/uL (1.5-6.6); NEUTROPHILS % (AUTO) 89.3 %; PLT - PLATELET COUNT 177 10^3/uL (130-450); RED BLOOD COUNT 3.12 10^6/uL (4.20-5.40); RED CELL DISTRIBUTION WIDTH 17.5 % (12.0-15.0); WHITE BLOOD COUNT 20.3 x10^3/uL (4.8-10.8)
[2018-09-07 07:09] LABS: URIC ACID 4.6 mg/dL (2.6-7.2)
[2018-09-07] MEDS: MAGNESIUM SULFATE IN WATER 20 GM/500 ML IV.SOLN IV SCH ×3 (07:10→20:40)
[2018-09-07] MEDS ORDERED: MAGNESIUM SULFATE IN WATER 20 GM/500 ML IV.SOLN IV ONE (07:20)
[2018-09-07 07:36] LABS: DIFFERENTIAL COMMENT MANUAL=AUTO DIFF
[2018-09-07] MEDS ORDERED: SODIUM CHLORIDE FLUSH 0.9% 10 ML SYRINGE IVP PRN (07:38)
[2018-09-07] MEDS ORDERED: LACTATED RINGERS 1,000 ML IV SCH (08:00)
[2018-09-07] MEDS ORDERED: ceFAZolin 1 GM VIAL IV ONE (09:00)
[2018-09-07] MEDS ORDERED: ROPIVACAINE 0.5% PF 20 ML AMPULE EP ONE (09:00)
[2018-09-07] MEDS ORDERED: PHENYLEPHRINE 50 MG/5 ML VIAL IV ONE (09:00)
[2018-09-07] MEDS ORDERED: ePHEDrine 50 MG/ML VIAL IVP ONE (09:00)
[2018-09-07] MEDS ORDERED: OXYTOCIN 10 UNIT/ML VIAL IV ONE (09:00)
[2018-09-07] MEDS ORDERED: ONDANSETRON 4 MG/2 ML VIAL IVP ONE (09:00)
[2018-09-07] MEDS ORDERED: MORPHINE PF 5 MG/10 ML AMP EP ONE (09:00)
[2018-09-07] MEDS ORDERED: LIDOCAINE-MPF 2% 5 ML VIAL IM ONE (09:00)
[2018-09-07] MEDS ORDERED: KETOROLAC 30 MG/ML VIAL IVP SCH (09:00)
[2018-09-07] MEDS ORDERED: KETOROLAC 30 MG/ML VIAL IVP ONE (09:00)
--- NOTE | 2018-09-07 13:10 | OPERATIVE REPORT ---
Operative Report - General Admit Date: 09/06/18 Procedure Date: 09/07/18 Planned Procedure: Primary low trasnverse Pre-Op Diagnosis: intolerance of labor, failure to descend Procedure Performed: Primary low transverse Post Op Diagnosis: Same and delivery of term gestation - Procedure Note Primary Surgeon: Annie Rascon MD Secondary Surgeon: Stephen Goldman MD Anesthesia Technique: Epidural Pathology: Placenta for routine discard Estimated Blood Loss (mL): 150 Indications: intolerance of labor and failure to descend. heart rate would decelerate to the 60s with pushing with poor progress with descent. Minimal descent with one hour of laboring down. heart tracing unable to tolerate continued pushing, remote from delivery Findings: Male fetus weighing 8lb 0.8 oz, Apgars 8/9 Complications: Surgery was uncomplicated. Patient showed dystonic/chorea like arm spasms during the surgerythat worsened during the post op period. - Other Other Information/Narrative: see dictation
[2018-09-07] MEDS: KETOROLAC 30 MG/ML VIAL IVP SCH (14:06)
--- NOTE | 2018-09-07 19:40 | PROVIDER PROGRESS NOTE ---
Subjective - General Admit Date: 09/06/18 Procedure Date: 09/07/18 Post Op Days: 0 Procedure Performed: PLTC/S - Review of Systems Wound/Incisions: positive: Drainage (Pt has blood on the dressing. removed and replaced) General: positive: No symptoms (Pain 2/10 moving well upout of bed) Pulmonary: positive: No symptoms Cardiovascular: positive: No symptoms Gastrointestinal: positive: No symptoms All Other Systems: positive: Reviewed and negative Objective - Patient Data Vital Signs: Vital Signs x48h Temp Pulse Resp BP Pulse Ox 09/07/18 17:00 36.8 C 102 H 16 116/62 96 09/07/18 12:34 37.1 C 76 18 104/67 98 Weight: Weight 09/05/18 09/06/18 09/07/18 23:59 23:59 23:59 Weight (kg) 74.843 kg Intake & Output: Intake and Output Totals x24h 09/05/18 09/06/18 09/07/18 23:59 23:59 23:59 Intake Total 500 Output Total 2120 Balance -1620 - Lab Results Lab Results: 09/07/18 06:50 Other Lab Results: Lab Results x24hrs 09/07/18 09/07/18 09/07/18 Range/Units 06:50 06:50 06:50 WBC (4.8-10.8) x10^3/uL RBC (4.20-5.40) 10^6/uL Hgb (12.0-16.0) g/dL Hct (37.0-47.0) % MCV (81.0-99.0) fL MCH (27.0-31.0) pg MCHC (32.0-36.0) g/dL RDW (12.0-15.0) % Plt Count (130-450) 10^3/uL MPV (7.9-10.8) fL Neut # (Auto) (1.5-6.6) 10^3/uL Lymph # (Auto) (1.5-3.5) 10^3/uL [place] # (Auto) (0.0-1.0) 10^3/uL Eos # (Auto) (0.0-0.7) 10^3/uL Baso # (Auto) (0.0-0.1) 10^3/uL Absolute Nucleated RBC x10^3/uL Band Neuts % (Manual) Abnorm Lymph % (Manual) Nucleated RBC % /100WBC Neutrophils # (Manual) Lymphocytes # (Manual) Monocytes # (Manual) Eosinophils # (Manual) Basophils # (Manual) Differential Comment Fibrinogen 398 (220-496) mg/dL Uric Acid 4.6 (2.6-7.2) mg/dL AST 33 (10-42) IU/L Lactate Dehydrogenase 179 (91-225) IU/L 09/07/18 Range/Units 06:50 WBC 20.3 H (4.8-10.8) x10^3/uL RBC 3.12 L (4.20-5.40) 10^6/uL Hgb 8.7 L (12.0-16.0) g/dL Hct 26.1 L (37.0-47.0) % MCV 83.6 (81.0-99.0) fL MCH 27.8 (27.0-31.0) pg MCHC 33.2 (32.0-36.0) g/dL RDW 17.5 H (12.0-15.0) % Plt Count 177 (130-450) 10^3/uL MPV 10.6 (7.9-10.8) fL Neut # (Auto) 18.1 H (1.5-6.6) 10^3/uL Lymph # (Auto) 0.6 L (1.5-3.5) 10^3/uL [place] # (Auto) 1.6 H (0.0-1.0) 10^3/uL Eos # (Auto) 0.0 (0.0-0.7) 10^3/uL Baso # (Auto) 0.0 (0.0-0.1) 10^3/uL Absolute Nucleated RBC 0.03 x10^3/uL Band Neuts % (Manual) Not Reportable Abnorm Lymph % (Manual) Not Reportable Nucleated RBC % 0.1 /100WBC Neutrophils # (Manual) Not Reportable Lymphocytes # (Manual) Not Reportable Monocytes # (Manual) Not Reportable Eosinophils # (Manual) Not Reportable Basophils # (Manual) Not Reportable Differential Comment MANUAL=AUTO DIFF Fibrinogen (220-496) mg/dL Uric Acid (2.6-7.2) mg/dL AST (10-42) IU/L Lactate Dehydrogenase (91-225) IU/L - Current Medications Current Medications: Current Medications Generic Name Dose Route Start Last Admin Trade Name Freq PRN Reason Stop Dose Admin Fentanyl 50 mcg 09/06/18 09:57 09/06/18 18:49 Fentanyl IVP 50 mcg Q1H PRN Administration PAIN Lactated Ringer's 1,000 mls @ 150 mls/hr 09/06/18 10:00 09/07/18 00:24 Lr IV 150 mls/hr .Q6H40M AMANDA Administration Magnesium Sulfate 20 gm in 500 mls @ 50 mls/hr 09/07/18 08:00 09/07/18 19:05 Magnesium Sulf 20 G/500 Ml Bag IV 2 gm/hr .Q10H AMANDA 50 mls/hr Administration 2 GM/HR Ketorolac Tromethamine 30 mg 09/07/18 12:00 09/07/18 14:06 Toradol Inj (30mg) IVP 09/08/18 00:01 30 mg Q6H AMANDA Administration Misoprostol 50 mcg 09/06/18 11:00 09/06/18 19:48 Cytotec PO Not Given Q4H AMANDA Ondansetron HCl 4 mg 09/06/18 09:57 09/06/18 19:10 Zofran Inj IVP 4 mg Q4H PRN Administration Nausea / Vomiting Sodium Chloride 10 ml 09/06/18 09:00 09/06/18 19:11 Normal Saline Flush 0.9% IVP 10 ml 0100,0900,1700 AMANDA Administration - Physical Exam Wound/Incisions: positive: Drainage (removed and redressed) General Appearance: positive: No acute distress, Anxious (Pt is very distrubed about the events of this AM. felt that she was dying. was in and out. had violent shaking which resolved.) Respiratory: positive: Chest non-tender, No respiratory distress, Breath sounds nml Cardiovascular: positive: Regular rate & rhythm, No murmur, No gallop Abdomen: positive: Non-tender, Nml bowel sounds, No distention Neurologic/Psychiatric: positive: Oriented x3 Comments/Other: Pt is very anxoius about the events of this AM Impression/Plan - Problem List Problem List: POD #0 SP PLTC/S for intolerance of Labor Anxious about delivery. Disappointed about having a C/S. No signs of hypovolemia. no tachycardia, hypotension, excellent urinary out put. Plan CBC, Magnesium level Pt needs rest. at this time a Ultrasound would not be recomended. would CT in needed
[2018-09-07 19:52] LABS: BASOPHILS % (AUTO) 0.3 %; HGB - HEMOGLOBIN 7.1 g/dL (12.0-16.0); LYMPHOCYTES % (AUTO) 6.3 %; MEAN CORPUSCULAR HEMOGLOBIN 27.5 pg (27.0-31.0); MEAN CORPUSCULAR HGB CONC 33.1 g/dL (32.0-36.0); MEAN PLATELET VOLUME 9.8 fL (7.9-10.8); MONOCYTES % (AUTO) 11.2 %; NEUTROPHILS % (AUTO) 82.2 %; PLT - PLATELET COUNT 169 10^3/uL (130-450); RED BLOOD COUNT 2.57 10^6/uL (4.20-5.40); RED CELL DISTRIBUTION WIDTH 17.6 % (12.0-15.0); WHITE BLOOD COUNT 22.8 x10^3/uL (4.8-10.8)
[2018-09-07 19:54] LABS: ABNORMAL LYMPHS % (MANUAL) 0 %
[2018-09-07 20:11] LABS: BAND NEUTROPHILS % (MANUAL) 2 %; LYMPHOCYTES # (MANUAL) 1.1 10^3/uL (1.5-3.5); LYMPHOCYTES % (MANUAL) 5 %; MONOCYTES # (MANUAL) 1.4 10^3/uL (0.0-1.0); NEUTROPHILS # (MANUAL) 20.3 10^3/uL (1.5-6.6); NEUTROPHILS % (MANUAL) 87 %; RBC MORPHOLOGY (MULTIPLE) 1+ ANISOCYTOSIS (NORMAL)
[2018-09-07 20:12] LABS: DIFFERENTIAL COMMENT MANUAL DIFFERENTIAL; PLATELET ESTIMATE, MANUAL NORMAL (130-450,000) (NORMAL); PLATELET MORPHOLOGY NORMAL APPEARANCE (NORMAL)
[2018-09-07] MEDS: DOCUSATE SODIUM 100 MG CAPSULE PO SCH (20:59)
[2018-09-07] MEDS: SIMETHICONE CHEW 80 MG TABLET PO SCH (22:52)
[2018-09-08] MEDS: KETOROLAC 30 MG/ML VIAL IVP SCH ×2 (00:56→20:19)
[2018-09-08 06:01] LABS: BASOPHILS % (AUTO) 0.2 %; EOSINOPHILS % (AUTO) 0.2 %; LYMPHOCYTES # (AUTO) 2.1 10^3/uL (1.5-3.5); LYMPHOCYTES % (AUTO) 12.5 %; MEAN CORPUSCULAR HEMOGLOBIN 27.6 pg (27.0-31.0); MEAN CORPUSCULAR VOLUME 83.6 fL (81.0-99.0); MEAN PLATELET VOLUME 10.3 fL (7.9-10.8); MONOCYTES # (AUTO) 1.5 10^3/uL (0.0-1.0); MONOCYTES % (AUTO) 8.6 %; NEUTROPHILS # (AUTO) 13.4 10^3/uL (1.5-6.6); NEUTROPHILS % (AUTO) 78.5 %; PLT - PLATELET COUNT 160 10^3/uL (130-450); RED BLOOD COUNT 2.37 10^6/uL (4.20-5.40); RED CELL DISTRIBUTION WIDTH 17.7 % (12.0-15.0)
[2018-09-08 06:02] LABS: MAGNESIUM 4.5 mg/dL (1.7-2.8); URIC ACID 4.5 mg/dL (2.6-7.2)
[2018-09-08 06:06] LABS: HGB - HEMOGLOBIN 6.5 g/dL (12.0-16.0)
[2018-09-08 06:31] LABS: CREATININE,URINE 21.3 mg/dL
[2018-09-08 06:32] LABS: TOTAL PROTEIN,URINE TIMED < 6 mg/dL
[2018-09-08] MEDS: oxyCODONE 5 MG TABLET PO PRN ×4 (07:03→21:00)
[2018-09-08] MEDS: SIMETHICONE CHEW 80 MG TABLET PO SCH ×2 (07:03→20:59)
[2018-09-08] MEDS: IBUPROFEN 600 MG TABLET PO SCH ×3 (08:31→21:00)
[2018-09-08] MEDS: ACETAMINOPHEN 325 MG TABLET PO PRN ×3 (11:37→20:59)
[2018-09-08] MEDS: DOCUSATE SODIUM 100 MG CAPSULE PO SCH ×2 (11:37→20:59)
[2018-09-08] MEDS ORDERED: IBUPROFEN 600 MG TABLET PO SCH (14:00)
[2018-09-08] MEDS ORDERED: SODIUM CHLORIDE FLUSH 0.9% 10 ML SYRINGE ONE ×2 (14:51→18:01)
[2018-09-08] MEDS: SODIUM CHLORIDE FLUSH 0.9% 10 ML SYRINGE IVP PRN (14:52)
[2018-09-08] MEDS: SODIUM CHLORIDE FLUSH 0.9% 10 ML SYRINGE IVP SCH (14:52)
--- NOTE | 2018-09-08 17:25 | PROVIDER PROGRESS NOTE ---
Subjective - General Admit Date: 09/06/18 Procedure Date: 09/07/18 Post Op Days: 1 Procedure Performed: PLTC/S - Review of Systems Wound/Incisions: positive: Dressing dry and intact, Drainage (removed and re dressed) General: positive: No symptoms (Pain 2/10 moving well upout of bed) HEENT: positive: No symptoms Pulmonary: positive: No symptoms Cardiovascular: positive: No symptoms Gastrointestinal: positive: No symptoms Genitourinary: positive: No symptoms Musculoskeletal: positive: No symptoms Skin: positive: No symptoms Psychiatric: positive: No symptoms All Other Systems: positive: Reviewed and negative - Other Other Information/Narrative: Renetta is POD#1 s/p unscheduled primary . Post operative course haf been complicated by an unusual clinical presentation in which the patient had chorea-like movements, tachycardia, hypertension, and intermittent episodes of loss of consciousness in which tone was maintained. She improved after treatment with benadryl 12.5 mg IV, lorazepam 0.5 mg IV, l abetalol 20 mg IV, and magnesium 6g bolus and 2g infusion. The magnesium infusion was stopped yesterday. Blood pressures have been maintained within normal range. HCT was 19.5 this am. Renetta has sickle cell trait and is accustomed to a lower baseline HCT. She is without symptoms today. She has been up and ambulating, tolerating po, voiding, and has pain appropriately managed with oral meds. No dizziness, lightheadedness, or palpitations. Objective - Patient Data Vital Signs: Vital Signs x48h Temp Pulse Resp BP Pulse Ox 09/08/18 16:45 98.8 F 91 16 166/66 H 97 09/08/18 12:30 97 16 115/72 99 09/08/18 10:25 104/59 L Weight: Weight 09/06/18 09/07/18 09/08/18 23:59 23:59 23:59 Weight (kg) 74.843 kg Intake & Output: Intake and Output Totals x24h 09/06/18 09/07/18 09/08/18 23:59 23:59 23:59 Intake Total 550 250 Output Total 4358 0035 Balance -1555 -3680 - Lab Results Lab Results: 09/08/18 05:25 Other Lab Results: Lab Results x24hrs 0609/08/18 09/08/18 Range/Units 06:05 05:25 05:16 WBC 17.0 H (4.8-10.8) x10^3/uL RBC 2.37 L (4.20-5.40) 10^6/uL Hgb 6.5 L* (12.0-16.0) g/dL Hct 19.8 L* (37.0-47.0) % MCV 83.6 (81.0-99.0) fL MCH 27.6 (27.0-31.0) pg MCHC 33.0 (32.0-36.0) g/dL RDW 17.7 H (12.0-15.0) % Plt Count 160 (130-450) 10^3/uL MPV 10.3 (7.9-10.8) fL Neut # (Auto) 13.4 H Lymph # (Auto) 2.1 [place] # (Auto) 1.5 H Eos # (Auto) 0.0 Baso # (Auto) 0.0 Absolute Nucleated RBC 0.01 Total Counted Band Neuts % (Manual) (0 - 10) % Abnorm Lymph % (Manual) % Nucleated RBC % 0.1 Neutrophils # (Manual) (1.5-6.6) 10^3/uL Lymphocytes # (Manual) (1.5-3.5) 10^3/uL Monocytes # (Manual) (0.0-1.0) 10^3/uL Eosinophils # (Manual) (0-0.7) 10^3/uL Basophils # (Manual) (0-0.1) 10^3/uL Differential Comment Manual Slide Review WBC Morphology (NORMAL) Platelet Estimate (NORMAL) Platelet Morphology (NORMAL) RBC Morph Micro Appear (NORMAL) Uric Acid 4.5 (2.6-7.2) mg/dL Magnesium 4.5 H (1.7-2.8) mg/dL AST 29 (10-42) IU/L ALT 13 (10-60) IU/L Urine Creatinine 21.3 mg/dL Ur Total Protein Timed < 6 mg/dL Protein/Creatinin Ratio Not Reportable 09/07/18 09/07/18 Range/Units 19:47 19:47 WBC 22.8 H (4.8-10.8) x10^3/uL RBC 2.57 L (4.20-5.40) 10^6/uL Hgb 7.1 L (12.0-16.0) g/dL Hct 21.4 L (37.0-47.0) % MCV 83.0 (81.0-99.0) fL MCH 27.5 (27.0-31.0) pg MCHC 33.1 (32.0-36.0) g/dL RDW 17.6 H (12.0-15.0) % Plt Count 169 (130-450) 10^3/uL MPV 9.8 (7.9-10.8) fL Neut # (Auto) Not Reportable Lymph # (Auto) Not Reportable [place] # (Auto) Not Reportable Eos # (Auto) Not Reportable Baso # (Auto) Not Reportable Absolute Nucleated RBC Not Reportable Total Counted 100 Band Neuts % (Manual) 2 (0 - 10) % Abnorm Lymph % (Manual) 0 % Nucleated RBC % Not Reportable Neutrophils # (Manual) 20.3 H (1.5-6.6) 10^3/uL Lymphocytes # (Manual) 1.1 L (1.5-3.5) 10^3/uL Monocytes # (Manual) 1.4 H (0.0-1.0) 10^3/uL Eosinophils # (Manual) 0.0 (0-0.7) 10^3/uL Basophils # (Manual) 0.0 (0-0.1) 10^3/uL Differential Comment MANUAL DIFFERENTIAL Manual Slide Review Indicated WBC Morphology NORMAL APPEARANCE (NORMAL) Platelet Estimate NORMAL (130-450,000) (NORMAL) Platelet Morphology NORMAL APPEARANCE (NORMAL) RBC Morph Micro Appear 1+ ANISOCYTOSIS (NORMAL) Uric Acid (2.6-7.2) mg/dL Magnesium 5.2 H* (1.7-2.8) mg/dL AST (10-42) IU/L ALT (10-60) IU/L Urine Creatinine mg/dL Ur Total Protein Timed mg/dL Protein/Creatinin Ratio - Current Medications Current Medications: Current Medications Generic Name Dose Route Start Last Admin Trade Name Freq PRN Reason Stop Dose Admin Acetaminophen 650 mg 09/08/18 10:09 09/08/18 15:58 Tylenol PO 650 mg Q4HR PRN Administration Pain or Fever > 38C (100.4F) Docusate Sodium 100 mg 09/07/18 21:00 09/08/18 11:37 Colace 100mg Capsule PO 100 mg BID AMANDA Administration Fentanyl 50 mcg 09/06/18 09:57 09/06/18 18:49 Fentanyl IVP 50 mcg Q1H PRN Administration PAIN Lactated Ringer's 1,000 mls @ 150 mls/hr 09/06/18 10:00 09/07/18 20:53 Lr IV Not Given .Q6H40M AMANDA Magnesium Sulfate 20 gm in 500 mls @ 25 mls/hr 09/07/18 20:26 09/08/18 06:52 Magnesium Sulf 20 G/500 Ml Bag IV Infused .Q20H AMANDA Infusion 1 GM/HR Ibuprofen 600 mg 09/08/18 06:00 09/08/18 14:50 Motrin PO 09/09/18 05:59 600 mg Q6H AMANDA Administration Ondansetron HCl 4 mg 09/06/18 09:57 09/06/18 19:10 Zofran Inj IVP 4 mg Q4H PRN Administration Nausea / Vomiting Oxycodone HCl 5 mg 09/07/18 08:04 09/08/18 15:58 Roxicodone PO 5 mg Q4HR PRN Administration PAIN Simethicone 80 mg 09/07/18 14:00 09/08/18 07:03 Mylicon PO 80 mg TID AMANDA Administration Sodium Chloride 10 ml 09/06/18 09:00 09/08/18 14:52 Normal Saline Flush 0.9% IVP 10 ml 0100,0900,1700 AMANDA Administration Sodium Chloride 10 ml 09/06/18 07:06 09/08/18 14:52 Normal Saline Flush 0.9% IVP 10 ml PRN PRN Administration NEEDED PER PROVIDER ORDERS - Physical Exam Wound/Incisions: positive: Healing well, Dressing dry and intact General Appearance: positive: No acute distress, Alert Respiratory: positive: No respiratory distress, Breath sounds nml Cardiovascular: positive: Regular rate & rhythm Abdomen: positive: Other (Appropriately tender. Fundus below umbilicus) Neurologic/Psychiatric: positive: Oriented x3, Motor nml, Mood/affect nml (Peripad with scant lochia) ABX Reporting Has patient been on IV antibiotics over the past 48 hours?: Yes Impression/Plan - Problem List Problem List: Renetta is POD#1 from an unscheduled LTCS. Doing well. POSTOP HTN/TACHYCARDIA/CHOREA: Blood pressures wnl. HR wnl. No evidence of residual neurologic changes off all meds. Situation appears to be resolved ANEMIA: HCT 19.5. -Has baseline anemia 2/2 sickle cell trait. No symptoms -Had in-depth discussion regarding transfusion with PRBCs vs IV iron, vs taking oral iron. Renetta clearly states that she is without symptoms and does NOT feel transfusion is necessary. She has had a high level of activity, even greater than expected, and is without symptoms. She would prefer to take oral iron rather than IV iron. She will start oral iron. POSTOP: Meeting goals for am discharge -Up and ambulating -Tolerating po -Pain managed with oral meds -Voiding AB+/ Rub imm Anticipate DC home in the am
[2018-09-08] MEDS: ONDANSETRON 4 MG/2 ML VIAL IVP PRN (17:55)
[2018-09-09] MEDS: oxyCODONE 5 MG TABLET PO PRN ×5 (01:41→17:48)
[2018-09-09] MEDS: ACETAMINOPHEN 325 MG TABLET PO PRN ×5 (01:42→17:47)
[2018-09-09] MEDS: IBUPROFEN 600 MG TABLET PO SCH (04:56)
[2018-09-09] MEDS: SIMETHICONE CHEW 80 MG TABLET PO SCH ×4 (05:46→18:48)
[2018-09-09 06:58] LABS: BASOPHILS % (AUTO) 0.1 %; EOSINOPHILS # (AUTO) 0.1 10^3/uL (0.0-0.7); EOSINOPHILS % (AUTO) 0.8 %; LYMPHOCYTES # (AUTO) 2.2 10^3/uL (1.5-3.5); LYMPHOCYTES % (AUTO) 16.7 %; MEAN CORPUSCULAR HEMOGLOBIN 27.6 pg (27.0-31.0); MEAN CORPUSCULAR HGB CONC 33.1 g/dL (32.0-36.0); MEAN CORPUSCULAR VOLUME 83.5 fL (81.0-99.0); MEAN PLATELET VOLUME 9.6 fL (7.9-10.8); MONOCYTES # (AUTO) 1.1 10^3/uL (0.0-1.0); MONOCYTES % (AUTO) 8.2 %; NEUTROPHILS # (AUTO) 9.7 10^3/uL (1.5-6.6); NEUTROPHILS % (AUTO) 74.2 %; PLT - PLATELET COUNT 172 10^3/uL (130-450); RED BLOOD COUNT 2.25 10^6/uL (4.20-5.40); RED CELL DISTRIBUTION WIDTH 17.8 % (12.0-15.0); WHITE BLOOD COUNT 13.1 x10^3/uL (4.8-10.8)
[2018-09-09 07:01] LABS: HGB - HEMOGLOBIN 6.2 g/dL (12.0-16.0)
[2018-09-09] MEDS: DOCUSATE SODIUM 100 MG CAPSULE PO SCH ×2 (09:48→21:46)
[2018-09-09] MEDS: IBUPROFEN 600 MG TABLET PO PRN ×2 (12:52→18:48)
[2018-09-09] MEDS: SODIUM CHLORIDE FLUSH 0.9% 10 ML SYRINGE IVP PRN (12:53)
--- NOTE | 2018-09-09 13:15 | PROVIDER PROGRESS NOTE ---
Subjective - General Admit Date: 09/06/18 Procedure Date: 09/07/18 Post Op Days: 2 Procedure Performed: PLTC/S - Review of Systems Wound/Incisions: positive: Healing well, Other (Dressing removed. Sterisrtips CDI) General: positive: No symptoms (Pain at 1 when medicated) HEENT: positive: No symptoms Pulmonary: positive: No symptoms Cardiovascular: positive: No symptoms Gastrointestinal: positive: No symptoms Genitourinary: positive: No symptoms Musculoskeletal: positive: No symptoms Skin: positive: No symptoms Psychiatric: positive: No symptoms All Other Systems: positive: Reviewed and negative Objective - Patient Data Vital Signs: Vital Signs x48h Temp Pulse Resp BP Pulse Ox 09/09/18 10:28 98.4 F 88 16 101/64 99 09/09/18 07:00 88 16 102/53 L 100 Intake & Output: Intake and Output Totals x24h 09/07/18 09/08/18 09/09/18 23:59 23:59 23:59 Intake Total 550 250 Output Total 2445 2125 Balance -1895 -1875 - Lab Results Lab Results: 09/09/18 06:39 Other Lab Results: Lab Results x24hrs 09/09/18 09/09/18 Range/Units 06:39 06:39 WBC 13.1 H (4.8-10.8) x10^3/uL RBC 2.25 L (4.20-5.40) 10^6/uL Hgb 6.2 L* (12.0-16.0) g/dL Hct 18.8 L* (37.0-47.0) % MCV 83.5 (81.0-99.0) fL MCH 27.6 (27.0-31.0) pg MCHC 33.1 (32.0-36.0) g/dL RDW 17.8 H (12.0-15.0) % Plt Count 172 (130-450) 10^3/uL MPV 9.6 (7.9-10.8) fL Neut # (Auto) 9.7 H (1.5-6.6) 10^3/uL Lymph # (Auto) 2.2 (1.5-3.5) 10^3/uL [place] # (Auto) 1.1 H (0.0-1.0) 10^3/uL Eos # (Auto) 0.1 (0.0-0.7) 10^3/uL Baso # (Auto) 0.0 (0.0-0.1) 10^3/uL Absolute Nucleated RBC 0.00 x10^3/uL Nucleated RBC % 0.0 /100WBC Blood Type O POSITIVE Antibody Screen NEGATIVE - Current Medications Current Medications: Current Medications Generic Name Dose Route Start Last Admin Trade Name Freq PRN Reason Stop Dose Admin Acetaminophen 650 mg 09/08/18 10:09 09/09/18 09:48 Tylenol PO 650 mg Q4HR PRN Administration Pain or Fever > 38C (100.4F) Docusate Sodium 100 mg 09/07/18 21:00 09/09/18 09:48 Colace 100mg Capsule PO 100 mg BID AMANDA Administration Fentanyl 50 mcg 09/06/18 09:57 09/06/18 18:49 Fentanyl IVP 50 mcg Q1H PRN Administration PAIN Lactated Ringer's 1,000 mls @ 150 mls/hr 09/06/18 10:00 09/07/18 20:53 Lr IV Not Given .Q6H40M AMANDA Magnesium Sulfate 20 gm in 500 mls @ 25 mls/hr 09/07/18 20:26 09/08/18 06:52 Magnesium Sulf 20 G/500 Ml Bag IV Infused .Q20H AMANDA Infusion 1 GM/HR Ibuprofen 600 mg 09/09/18 12:38 09/09/18 12:52 Motrin PO 600 mg Q6HR PRN Administration pain Ondansetron HCl 4 mg 09/06/18 09:57 09/08/18 17:55 Zofran Inj IVP 4 mg Q4H PRN Administration Nausea / Vomiting Oxycodone HCl 5 mg 09/07/18 08:04 09/09/18 09:48 Roxicodone PO 5 mg Q4HR PRN Administration PAIN Simethicone 80 mg 09/07/18 14:00 09/09/18 07:45 Mylicon PO Not Given TID AMANDA Sodium Chloride 10 ml 09/06/18 09:00 09/08/18 14:52 Normal Saline Flush 0.9% IVP 10 ml 0100,0900,1700 AMANDA Administration Sodium Chloride 10 ml 09/06/18 07:06 09/09/18 12:53 Normal Saline Flush 0.9% IVP 10 ml PRN PRN Administration NEEDED PER PROVIDER ORDERS - Physical Exam Wound/Incisions: positive: Healing well (Incision CDI) General Appearance: positive: No acute distress ENT: positive: ENT inspection nml Respiratory: positive: No respiratory distress, Breath sounds nml Cardiovascular: positive: Regular rate & rhythm Abdomen: positive: Non-tender, Other (fundus) Skin: positive: Color nml Extremities: positive: Non-tender, Nml appearance, No pedal edema Neurologic/Psychiatric: positive: Oriented x3 Impression/Plan - Problem List Problem List: HCT 18.8 in setting of chronic anemia 2/2 sickle cell trait No symptoms and has been active. Declines transfusion and iron supplementation at this time Otherwise up and ambulating Tolerating po Pain well managed Voiding Cont in-patient stay for support O pos/ Rub imm
[2018-09-10] MEDS: ACETAMINOPHEN 325 MG TABLET PO PRN ×4 (00:40→17:19)
[2018-09-10] MEDS: oxyCODONE 5 MG TABLET PO PRN ×5 (00:41→20:25)
[2018-09-10] MEDS: DOCUSATE SODIUM 100 MG CAPSULE PO SCH (08:10)
[2018-09-10] MEDS: IBUPROFEN 600 MG TABLET PO PRN ×3 (08:10→20:24)
[2018-09-10] MEDS: SIMETHICONE CHEW 80 MG TABLET PO SCH ×4 (08:34→17:19)
[2018-09-10] MEDS: SODIUM CHLORIDE FLUSH 0.9% 10 ML SYRINGE IVP SCH ×8 (08:55→11:10)
[2018-09-10] MEDS: LACTATED RINGERS 1,000 ML IV SCH ×7 (08:55→11:10)
[2018-09-10] MEDS: MAGNESIUM SULFATE IN WATER 20 GM/500 ML IV.SOLN IV SCH ×3 (08:56→09:01)
[2018-09-10] MEDS ORDERED: BISACODYL 10 MG SUPP PR PRN (09:45)
--- NOTE | 2018-09-10 09:51 | PROVIDER PROGRESS NOTE ---
Subjective - General Admit Date: 09/06/18 Procedure Date: 09/07/18 Post Op Days: 3 Procedure Performed: PLTC/S - Review of Systems Wound/Incisions: positive: Healing well (Incision CDI The incision is well a pproximated.) General: positive: No symptoms (Pain at 1 when medicated) HEENT: positive: No symptoms Pulmonary: positive: No symptoms Cardiovascular: positive: No symptoms Gastrointestinal: positive: No symptoms (Patient is passing flatus but denies any bowel movements at the present time.) Genitourinary: positive: No symptoms Musculoskeletal: positive: No symptoms Skin: positive: No symptoms Psychiatric: positive: No symptoms All Other Systems: positive: Reviewed and negative Objective - Patient Data Reviewed Vital Signs: Yes Vital Signs: Vital Signs x48h Temp Pulse Resp BP BP Pulse Ox 09/10/18 08:08 36.9 C 89 17 112/71 97 09/10/18 04:45 36.9 C 79 17 106/68 97 Intake & Output: Intake and Output Totals x24h 09/08/18 09/09/18 09/10/18 23:59 23:59 23:59 Intake Total 250 Output Total 2125 Balance -1875 - Lab Results Lab Results: 09/09/18 06:39 - Current Medications Current Medications: Current Medications Generic Name Dose Route Start Last Admin Trade Name Freq PRN Reason Stop Dose Admin Acetaminophen 650 mg 09/08/18 10:09 09/10/18 05:57 Tylenol PO 650 mg Q4HR PRN Administration Pain or Fever > 38C (100.4F) Docusate Sodium 100 mg 09/07/18 21:00 09/10/18 08:10 Colace 100mg Capsule PO 100 mg BID AMANDA Administration Fentanyl 50 mcg 09/06/18 09:57 09/06/18 18:49 Fentanyl IVP 50 mcg Q1H PRN Administration PAIN Lactated Ringer's 1,000 mls @ 150 mls/hr 09/06/18 10:00 09/10/18 09:04 Lr IV Not Given .Q6H40M AMANDA Magnesium Sulfate 20 gm in 500 mls @ 25 mls/hr 09/07/18 20:26 09/10/18 09:01 Magnesium Sulf 20 G/500 Ml Bag IV Not Given .Q20H AMANDA 1 GM/HR Ibuprofen 600 mg 09/09/18 12:38 09/10/18 08:10 Motrin PO 600 mg Q6HR PRN Administration pain Ondansetron HCl 4 mg 09/06/18 09:57 09/08/18 17:55 Zofran Inj IVP 4 mg Q4H PRN Administration Nausea / Vomiting Oxycodone HCl 5 mg 09/07/18 08:04 09/10/18 05:58 Roxicodone PO 5 mg Q4HR PRN Administration PAIN Simethicone 80 mg 09/07/18 14:00 09/10/18 08:34 Mylicon PO 80 mg TID AMANDA Administration Sodium Chloride 10 ml 09/06/18 09:00 09/10/18 09:04 Normal Saline Flush 0.9% IVP Not Given 0100,0900,1700 AMANDA Sodium Chloride 10 ml 09/06/18 07:06 09/09/18 12:53 Normal Saline Flush 0.9% IVP 10 ml PRN PRN Administration NEEDED PER PROVIDER ORDERS - Physical Exam Wound/Incisions: positive: Healing well, No drainage General Appearance: positive: No acute distress, Alert Respiratory: positive: No respiratory distress, Breath sounds nml Cardiovascular: positive: Regular rate & rhythm, No gallop, Systolic murmur (There is a grade 2 systolic ejection murmur noted.) Abdomen: positive: Non-tender, Nml bowel sounds, No distention ABX Reporting Has patient been on IV antibiotics over the past 48 hours?: No Impression/Plan - Problem List Problem List: Assessment:Status post delivery-stable 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 She does state that her insurance will cover this. We will therefore keep her as an inpatient. Since she has not had a bowel movement at this time a Dulcolax suppository was ordered as 10 mg rectally daily as needed. As long as she does well discharge is anticipated tomorrow morning.
[2018-09-11] MEDS: ACETAMINOPHEN 325 MG TABLET PO PRN ×4 (01:01→13:22)
[2018-09-11] MEDS: IBUPROFEN 600 MG TABLET PO PRN ×2 (05:12→11:57)
[2018-09-11] MEDS: oxyCODONE 5 MG TABLET PO PRN ×3 (05:13→13:22)
[2018-09-11 07:35] LABS: HGB - HEMOGLOBIN 6.3 g/dL (12.0-16.0)
--- NOTE | 2018-09-11 08:40 | PROVIDER PROGRESS NOTE ---
Subjective - General Admit Date: 09/06/18 Procedure Date: 09/07/18 Post Op Days: 4 Procedure Performed: PLTC/S - Review of Systems Wound/Incisions: positive: Healing well, Dressing dry and intact, No drainage General: positive: No symptoms (Pain at 1 when medicated) HEENT: positive: No symptoms, Headaches (The patient did have a headache this morning. This has now cleared.) Pulmonary: positive: No symptoms Cardiovascular: positive: No symptoms Gastrointestinal: positive: No symptoms (Patient is passing flatus but denies any bowel movements at the present time.) Genitourinary: positive: No symptoms Musculoskeletal: positive: No symptoms Skin: positive: No symptoms Psychiatric: positive: No symptoms All Other Systems: positive: Reviewed and negative - Other Other Information/Narrative: The patient is doing well this morning. She had a headache earlier which is now cleared. We repeated her H&H which is stable and unchanged. Her lochia is light. She is ambulatory well and tolerating diet well.She had a bowel movement yesterday afternoon on her own without any need of suppositories. Objective - Patient Data Vital Signs: Vital Signs x48h Temp Pulse Resp BP Pulse Ox 09/11/18 04:00 36.9 C 84 18 114/64 97 - Lab Results Lab Results: 09/11/18 07:21 Other Lab Results: Lab Results x24hrs 09/11/18 Range/Units 07:21 Hgb 6.3 L* (12.0-16.0) g/dL Hct 18.9 L* (37.0-47.0) % - Current Medications Current Medications: Current Medications Generic Name Dose Route Start Last Admin Trade Name Freq PRN Reason Stop Dose Admin Acetaminophen 650 mg 09/08/18 10:09 09/11/18 05:12 Tylenol PO 650 mg Q4HR PRN Administration Pain or Fever > 38C (100.4F) Docusate Sodium 100 mg 09/07/18 21:00 09/10/18 08:10 Colace 100mg Capsule PO 100 mg BID AMANDA Administration Fentanyl 50 mcg 09/06/18 09:57 09/06/18 18:49 Fentanyl IVP 50 mcg Q1H PRN Administration PAIN Lactated Ringer's 1,000 mls @ 150 mls/hr 09/06/18 10:00 09/10/18 11:10 Lr IV Not Given .Q6H40M AMANDA Magnesium Sulfate 20 gm in 500 mls @ 25 mls/hr 09/07/18 20:26 09/10/18 09:01 Magnesium Sulf 20 G/500 Ml Bag IV Not Given .Q20H AMANDA 1 GM/HR Ibuprofen 600 mg 09/09/18 12:38 09/11/18 05:12 Motrin PO 600 mg Q6HR PRN Administration pain Ondansetron HCl 4 mg 09/06/18 09:57 09/08/18 17:55 Zofran Inj IVP 4 mg Q4H PRN Administration Nausea / Vomiting Oxycodone HCl 5 mg 09/07/18 08:04 09/11/18 05:13 Roxicodone PO 5 mg Q4HR PRN Administration PAIN Simethicone 80 mg 09/07/18 14:00 09/10/18 17:19 Mylicon PO 80 mg TID AMANDA Administration Sodium Chloride 10 ml 09/06/18 09:00 09/10/18 11:10 Normal Saline Flush 0.9% IVP Not Given 0100,0900,1700 AMANDA Sodium Chloride 10 ml 09/06/18 07:06 09/09/18 12:53 Normal Saline Flush 0.9% IVP 10 ml PRN PRN Administration NEEDED PER PROVIDER ORDERS - Physical Exam Wound/Incisions: positive: Healing well, Dressing dry and intact, No drainage General Appearance: positive: No acute distress, Alert Respiratory: positive: Chest non-tender, No respiratory distress, Breath sounds nml Cardiovascular: positive: Regular rate & rhythm, No gallop, Systolic murmur (The patient continues with her grade 2 systolic ejection murmur) Abdomen: positive: Non-tender, Nml bowel sounds, No distention Extremities: positive: Non-tender, Nml appearance, No pedal edema Neurologic/Psychiatric: positive: Oriented x3, Motor nml, Mood/affect nml ABX Reporting Has patient been on IV antibiotics over the past 48 hours?: No Impression/Plan - Problem List Problem List: Assessment: Postop/ day #4-Stable Chronic Anemia exacerbated by surgical blood loss - stable Plan:The patient will be discharged home today with both written and verbal instructions Such as: 1. She is to forego any lifting, tampons, douching or intercourse. 2. She is to call if she has temperatures greater than 100.4 or heavy vaginal bleeding 3. She is to continue her iron supplement at home as ferrous sulfate 325 mg p.o. twice daily 4. She is to use ibuprofen 600 mg p.o. 3 times daily as her primary form of pain control 5. She was given a prescription for Percocet 5/325 1 p.o. every 4-6 hours as needed pain #20 no refills 6. She does not drive a car for the next 2 weeks. 7. She is to keep the Steri-Strips on the incision for 1 week. After that she may take them off. Prior to them coming off she may take a shower after they come off she may take a tub bath. 8. She is to call if she has any signs of infection 9. She will be seen in the office in 1 week as well as in 3 weeks and 8 weeks. She will call sooner if she has other problems.
[2018-09-11] MEDS: DOCUSATE SODIUM 100 MG CAPSULE PO SCH (09:21)
[2018-09-11 14:08] VITALS: BP 107/75
--- NOTE | 2018-09-11 14:22 | Labor Flowsheet ---
Labor Flowsheet Datetime Report Generated by CPN: 09/11/2018 14:22 Datetime: 09/07/2018 13:47 Membranes Ruptured Date/Time: 09/06/2018 21:19 Datetime: 09/07/2018 12:02 VITAL SIGNS NBP Sys/Willa/Mean (mmHg): 93 : 46 : 59 Pulse: 120 LaborFlag: Labor Datetime: 09/07/2018 09:20 SpO2 (%): 96 Datetime: 09/07/2018 04:01 Communication Comments: TO OR with anesthesia and K. Glodowski, RN Datetime: 09/07/2018 03:30 UTERINE ACTIVITY Monitor Mode: External Frequency (min): 2.5-3 Quality: Strong Duration (sec): 80-120 Pattern: Normal: <= 5 Contractions in 10 Minutes Resting Tone (Palpate): Relaxed ASSESSMENT A Monitor Mode: Telemetry FHR Baseline Rate : 125 Variability: Moderate 6-25 bpm Accelerations: None Decelerations: Early Category: Category II Datetime: 09/07/2018 03:21 Actions for Decelerations: Other Comments: Terbutaline given Datetime: 09/07/2018 02:15 VAGINAL EXAM Dilatation (cm): 10.0 Effacement (%): 100 Station: 0 Exam by: McSorely Datetime: 09/07/2018 02:04 Temperature (C): 37.2 Temperature Route: Oral Datetime: 09/07/2018 01:33 Patient Care Comments: [place] legs Datetime: 09/07/2018 01:31 Patient Position/Activity: Left Lateral Datetime: 09/07/2018 01:16 I/O Interventions: Straight Cath (ml) @ 275 Datetime: 09/07/2018 01:10 COMMUNICATION Communication: Provider at Bedside Provider Notified (Name): Dr. McSorley Datetime: 09/07/2018 01:03 Vaginal Exam Comments: anterior lip Datetime: 09/07/2018 01:01 STAGE 2 Pushing: Coached on Pushing; Urge to Push Pushing Position: Pushing with Contractions Datetime: 09/07/2018 00:15 Vital Sign Comments: d/t epidural Pain Presence: None/Denies Pain Type: Pressure MATERNAL ASSESSMENT Level of Consciousness: Fully Conscious DTR's/Clonus: DTRs 2+; No Clonus Headache: Denies Breath Sounds, Left: Clear and Equal Breath Sounds, Right: Clear and Equal Nausea/Vomiting: Denies RUQ Epigastric Pain: Denies PATIENT CARE IV/Blood Work: IV Infusing per Order TEACHING Instructional Method: Verbal Plan of Care: Plan of Care Discussed Pain Management: Epidural Datetime: 09/06/2018 23:10 Epidural Procedure Other: Pump Started Datetime: 09/06/2018 22:56 Epidural Procedure: Loading Dose Datetime: 09/06/2018 22:35 Anesthesia Comments: Sitting position; timeout performed Datetime: 09/06/2018 22:20 Pain Coping: Crying; Writhing Pain Assessment Comments: Uncontrolled; 2nd RN called into room, pt screaming in bed Datetime: 09/06/2018 22:12 Teaching Comments: Epidural placement Datetime: 09/06/2018 22:07 Medication Comments: Fluid bolus started. Datetime: 09/06/2018 21:55 Oxygen Method: Room Air Datetime: 09/06/2018 21:51 PAIN Pain Scale: 10 Pain Relief Measures: Comfort Measures Comfort Measures: Family Support; Track Service Worker Support Datetime: 09/06/2018 21:30 Vibroacoustic Stim: Datetime: 09/06/2018 21:21 Labor/Induction: Labor Stages Datetime: 09/06/2018 21:19 Membrane Status: Ruptured Membranes Rupture Method: Artificial Amniotic Fluid Color: Clear Amniotic Fluid Amount: Small Datetime: 09/06/2018 20:43 Notification Reason: Labor Status Datetime: 09/06/2018 20:29 Pain Location: Abdomen Datetime: 09/06/2018 19:27 Stage of : Labor ANESTHESIA Anesthesia Plans: Uncertain Datetime: 09/06/2018 19:15 MEDICATIONS Antiemetics/Antacids: Zofran (mg) @ 4 Datetime: 09/06/2018 19:00 FHR Baseline Changes: No Baseline Change Datetime: 09/06/2018 18:24 Cervix, Consistency: Soft Cervix, Position: Midposition Datetime: 09/06/2018 17:48 Respirations: 18 Datetime: 09/06/2018 16:03 Unit Routine: Medications Medications: Cervical Ripening PTL/PROM: Tocolytics Datetime: 09/06/2018 14:30 Contraction Comments: pt not bothered by ctx, denies pain Datetime: 09/06/2018 14:21 Cervical Ripening Agents: Cytotec @
--- NOTE | 2018-09-11 21:07 | DISCHARGE SUMMARY ---
Physician: Harrison Magallon DO DATE OF ADMISSION: 09/06/2018 DATE OF DISCHARGE: 09/11/2018 ADMITTING DIAGNOSES 1. Intrauterine at 40 weeks 4 days' gestation. 2. Sickle cell trait. 3. Chronic anemia secondary to #2. DISCHARGE DIAGNOSES 1. Delivery at 40 weeks 5 days' gestation. 2. Failure of descent. 3. Sickle cell trait. 5. 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 PROCEDURES 1. Failed induction of labor. 2. Primary section with low transverse incision. LABORATORIES: Admit CBC revealed WBC at 8.7, RBC at 3.82, hemoglobin at 10.7, hematocrit 31.8, with platelets at 200. Discharge CBC revealed a hemoglobin at 6.3 and a hematocrit of 18.9. Preeclamptic labs were all within normal limits. HOSPITAL COURSE: Patient was admitted [facility] on 09/06/2018 for induction of labor due to being post dates. Her course had been remarkable for sickle cell trait and chronic anemia secondary to that. This apparently had been an IVF-assisted . The patient was induced all day on 09/06/2018. As the tester electronic scale hours of 09/07/2018, however, ensued, the patient reached complete with respect to cervical dilatation. She began with expulsatory efforts at that time. However, with expulsatory efforts, she was having some marked decelerations, and the physician noted that there was a therefore category 2 strip. There was no descent, and therefore it was recommended that the patient be taken to surgery for a primary section. She underwent a primary section with low transverse incision on that date. Estimated blood loss was approximately 150 mL. During the procedure, the patient was having some dystonic type movements with her arms, though nothing seemed to correlate to any medications or neurologic problems during that time. Postoperatively, however, she was found to be hypertensive, very anxious, and was doing again some dystonic type of movements with her arms. The patient had laboratories drawn, all of which were within normal limits. Her hemoglobin was slightly decreased at that point in time, immediately postop at 8.7, which was felt to be normal since she was still equilibrating from her surgical procedure. A hospitalist was called to review the patient. The hospitalist felt that there was nothing definitive wrong with the patient at that time. The patient was therefore observed. She actually then cleared throughout that day. Her blood pressure stabilized, and she was not on any further blood pressure medication. Throughout the rest of her stay, her blood pressure remained stable and within normal limits. On her first postop day, she was actually doing better. Her magnesium sulfate had been stopped that morning. She was starting to ambulate. She is tolerating diet well. On her second day, she continued to do well. It was felt that she could have actually gone home that day, but she requested to stay another day. On her third day, she was doing well. Vital signs were stable. She was afebrile. Her incision was clean and dry without any signs of infection. Lochia was light. During the day, she had a bowel movement on her own. That was the first bowel movement she had had during her hospital stay. She had refused any blood transfusions, even though her hemoglobin had been as low as 6.2. She was completely asymptomatic, however. She did not want to start her iron until she went home. This had been discussed with her in detail by Dr. Rascon, who emphasized the need to start this, but the patient again did not wish to start this until she went home. On her fourth postop day, she remained stable. She had requested one more night, and so that was accomplished. She did have a headache in the morning, her H and H was repeated and was unchanged from her previous value. Her lochia was almost stopped. It was scant at most. She had normoactive bowel sounds. Vital signs are stable. She is afebrile. Lungs were clear. Her heart had a regular rate and rhythm with a grade 2/6 systolic ejection murmur. This had been present and was felt to be secondary to her anemia. Her incision was clean and dry without any signs of infection, it was well approximated. It was felt that the patient was stable and could be safely discharged to home. DISCHARGE INSTRUCTIONS Patient discharged to home, both written and verbal instructions including instructions as: 1. She is to forego any lifting, tampons, douching, or intercourse. 2. She is to report any temperature greater than 100.4 or heavy vaginal bleeding. 3. She is not to drive a car for the next two weeks. 4. She is to continue her vitamins and increase her fluids. 5. She is to continue ferrous sulfate 325 mg 1 p.o. b.i.d. 6. She may use stool softeners. If she does not have a bowel movement within a two-day period, she is to supplement also with MiraLax. 7. She is to continue to increase her fluids. 8. She will continue to breastfeed. 9. She is to leave the Steri-Strips on for the next two weeks. After that, she may take them off prior to them coming off. She may take a shower after they come off. She may take a tub bath. 10. She will call if any signs of infection ensue. 11. As long as she does well, she will be seen in the office in one week and three weeks and in eight weeks. TD: 09/11/2018 09:22 KAHLIL
== END 2018-09-11 14:00 | disposition home or self-care (01) | DRG 788 ==
LOC: WFO 05:37 → FBP 05:41 → WFO 07:04 → FBP 07:05 → OBSVTOIN 09:57 → FBP 09-07 12:11
PROVIDERS: ADMIT Obstetrics & Gynecology; ATTEND Obstetrics & Gynecology
PROC: 10907ZC Drainage of Amniotic Fluid, Therapeutic from Products of Conception, Via Natural or Artificial Opening (ICD-10-PCS; principal; 2018-09-06)
PROC: 10D00Z1 Extraction of Products of Conception, Low, Open Approach (ICD-10-PCS; 2018-09-07)
DX: O48.0 Post-term pregnancy (principal); O99.02 Anemia complicating childbirth; D63.8 Anemia in other chronic diseases classified elsewhere; D57.3 Sickle-cell trait; O99.03 Anemia complicating the puerperium; O76 Abnormality in fetal heart rate and rhythm complicating labor and delivery; O64.8XX0 Obstructed labor due to other malposition and malpresentation, not applicable or unspecified; Z37.0 Single live birth; O75.89 Other specified complications of labor and delivery; R25.8 Other abnormal involuntary movements; O99.345 Other mental disorders complicating the puerperium; F41.9 Anxiety disorder, unspecified; O75.4 Other complications of obstetric surgery and procedures; O16.5 Unspecified maternal hypertension, complicating the puerperium; I49.9 Cardiac arrhythmia, unspecified; R00.0 Tachycardia, unspecified; R55 Syncope and collapse; O90.89 Other complications of the puerperium, not elsewhere classified; R51 Headache; Z3A.40 40 weeks gestation of pregnancy
CPT/HCPCS: 36415; 82570; 83615; 83735; 84156; 84450; 84460; 84550; 85014; 85018; 85025; 85384; 86850; 86900; 86901; 93005; A9270; G0378; G0379; J2060; J7120

== ENCOUNTER 2018-09-28 15:11 | Outpatient (CLI) | payer BC, OTHER ==
[2018-09-28 15:25] LABS: MEAN CORPUSCULAR HEMOGLOBIN 27.2 pg (27.0-31.0); MEAN CORPUSCULAR HGB CONC 31.9 g/dL (32.0-36.0); MEAN CORPUSCULAR VOLUME 85.2 fL (81.0-99.0); MEAN PLATELET VOLUME 10.5 fL (7.9-10.8); RED BLOOD COUNT 3.31 10^6/uL (4.20-5.40); RED CELL DISTRIBUTION WIDTH 16.6 % (12.0-15.0); WHITE BLOOD COUNT 6.2 x10^3/uL (4.8-10.8)
== END 2018-09-28 15:12 | disposition home or self-care (01) ==
LOC: LAB 15:11
PROVIDERS: ATTEND Obstetrics & Gynecology
DX: D62 Acute posthemorrhagic anemia (principal)
CPT/HCPCS: 36415; 85027